=== PATIENT | female | born 1980 | race Caucasian/White ===

== ENCOUNTER 2022-06-27 02:18 | Inpatient (IN) ==
[2022-06-27] MEDS ORDERED: LORazepam 2 MG/1 ML VIAL IV STA ×2 (02:57→11:07)
[2022-06-27 03:16] LABS: Basophils # (auto) 0.05 K/uL (0-0.2); Basophils % (auto) 0.5 %; Eosinophils # (auto) 0.04 K/uL (0-0.50); Eosinophils % (auto) 0.4 %; Hematocrit (blood only) 37.8 % (37.0-47.0); Hemoglobin 13.1 g/dl (12.0-16.0); Immature Granulocytes # (auto) 0.04 K/uL (0.01-0.20); Immature Granulocytes % (auto) 0.4 %; Lymphocytes # (auto) 1.45 K/uL (1.2-3.4); Lymphocytes % (auto) 14.8 %; Mean Corpuscular Hemoglobin 30.8 pg (25.0-34.0); Mean Corpuscular Hgb Conc 34.7 g/dL (32.0-36.0); Mean Corpuscular Volume 88.9 fL (80.0-100.0); Mean Platelet Volume 11.1 fL (9.4-12.4); Monocytes # (auto) 0.28 K/uL (0.11-0.59); Monocytes % (auto) 2.9 %; Neutrophils # (auto) 7.91 K/uL (1.40-6.50); Platelet Count 248 K/uL (130-400); RDW Standard Deviation 41.7 fL (36.4-46.3); Red Blood Count 4.25 M/uL (4.20-5.40); White Blood Count 9.77 K/ul (4.8-10.8)
[2022-06-27 03:48] LABS: Albumin Globulin Ratio 1.4 (0.9-2); Bilirubin,Total 0.4 mg/dl (0.2-1.0); Calcium 8.7 mg/dl (8.6-10.3); Creatinine Clr Calc Pharmacy 135.1 ml/min; Est GFR (African American) 128.5 ml/min; Est GFR (Non-African American) 110.9 ml/min; Globulin 2.9 gm/dl (2.5-4.0); Potassium 4.6 mmol/L (3.5-5.1); Total Protein 6.9 gm/dl (6.0-8.3); Troponin I High Sensitivity 132.6 pg/ml (0-14)
[2022-06-27] MEDS ORDERED: fentaNYL citrate PF 100 MCG/2 ML VIAL IV STA (03:57)
[2022-06-27] MEDS ORDERED: ONDANSETRON INJ 2 MG/ML 2 ML VIAL IV STA (03:57)
[2022-06-27] MEDS ORDERED: Heparin IV Adult Wt-Based Standard WITH Bolus Protocol IV STA (04:16)
[2022-06-27] MEDS ORDERED: NITROGLYCERIN SL 0.4 MG/TAB TAB SL STA (04:16)
--- NOTE | 2022-06-27 04:18 | Emergency Department Note ---
Impression & Plan NSTEMI (non-ST elevated myocardial infarction) Admit to the [facility] service ED Provider Note NAME: DADA PARRISH AGE: 42 SEX: F ARRIVES VIA: Ambulance INFORMANT: Patient and EMS ED PROVIDER(S): Rosalia Vazquez DO CHIEF COMPLAINT: Chest pain PLAN: Disposition: Admit to the [facility] Condition: Guarded MEDICAL DECISION MAKING: This is a 42-year-old female patient who presents to the emergency department with chest pain and right arm discomfort for the past 2 days. The patient has different types of chest discomfort. 1 associated with anxiety and another one that seems to radiate into her right arm. EMS was called and they administered aspirin and nitroglycerin. She has a normal-appearing EKG and her troponin was significantly elevated. Her presentation is consistent with an NSTEMI. I have discussed the case with the [facility] Hospitalist and they will evaluate for further inpatient care. Patient has a known history of heart disease with a previous stent placed in [place], [place] in 2020. She continues to smoke 1 pack of cigarettes per day and has uncontrolled diabetes. Triage Nursing notes reviewed and agree with them. Additional history obtained from her is at the bedside We requested external medical records from [facility]. Their medical records department is not open at this hour over the weekend. Vital Signs: reviewed and unremarkable Differential diagnosis: Anxiety, aortic dissection, STEMI, NSTEMI, GERD ER treatment provided: Cardiac monitoring Twelve-lead EKG Heparin bolus Heparin drip Ativan IV IV fentanyl Diagnostics interpreted by me: ECG: Normal sinus rhythm at a rate of [address] segment elevation or signs of ischemia. There is no ectopy. QTc 462 ms Cardiac Monitoring: Normal sinus rhythm at 88 Laboratory studies: See below Imaging studies: As per my independent interpretation Portable chest x-ray: No significant cardiomegaly or pulmonary infiltrate s/opacities. HPI: 42/F arrives for evaluation of chest pain. Patient describes having intermittent chest discomfort over the past 2 days that radiates down her right arm. She does describe having a longstanding history of anxiety. She cannot tell whether the chest discomfort was from her anxiety or something else. The pain seemed to be getting worse tonight and her family was concerned. Patient developed worsening shortness of breath and nausea and vomiting. PAST MEDICAL HISTORY:Coronary artery disease; anxiety; yjl-[id number]-[id number] diabetes PAST SURGICAL HISTORY:See Below FAMILY HISTORY:See Below SOCIAL HISTORY:Lives with her family; smokes a pack of cigarettes per day HOME MEDICATIONS:See list ALLERGIES:See list VITALS:See Below PHYSICAL EXAMINATION: HEENT: Head - normocephalic and atraumatic. Pupils are equal, round, and reactive to light. Extraocular eye muscles are intact, and sclera are anicteric. Nose - moist nasal mucosa without discharge. Mouth - moist buccal mucosa. Oropharynx is nonerythematous and there is no tonsillar exudate or edema noted. Poor dentition Neck: Supple; no cervical lymphadenopathy or JVD Heart: Regular rate and rhythm. There is a normal S1 and S2 with no murmurs, clicks, or gallops appreciated. Lungs: Clear to auscultation bilaterally with no wheezes, rales, or rhonchi. Abdomen: Soft, completely nontender, nondistended, with good bowel sounds. There are no palpable pulsatile masses or hepatosplenomegaly. There is no guarding, rigidity, or rebound noted. Extremities: No evidence of cyanosis, clubbing, or edema. There are easily palpable peripheral pulses. Skin: warm and dry with good turgor and no rashes. ED COURSE:225 Times/Reassessments: 225 patient was evaluated in room A-10. A complete history and physical was performed. Pleural space for continuous cardiac monitoring. The patient was in a normal sinus rhythm at a rate of 88. A twelve-lead EKG was obtained as described above. Patient was extremely anxious on physical exam. She was given 2 mg of IV Ativan. This did seem to help with her symptoms. Portable chest x-ray was performed. Her chest discomfort continued she was given a dose of IV fentanyl and IV Zofran. She was also given sublingual nitro glycerin. I reviewed the results of the laboratory studies and x-ray with the patient. She was given a heparin bolus and started on heparin drip. I discussed the case with the [facility] Hospitalist and they will evaluate for further management. I have personally spent greater than 40 minutes of critical care time in the direct management of this patient. This includes bedside care, interpretation of diagnostic studies, and testing, discussion with consultants, patient, and family members, and other required patient management activities. This 40 minutes is in excess of all separately billable procedures. Rosaliaharry Vazquez DO Past Med/Surg History Social History Smoking Status: Current every day smoker Hx Alcohol Use: No Hx Substance Use: No Preferred Language: [place] Communication Ability: Effective Director Of Player Personnel Required: No Beliefs That Will Affect Care: None Current Living Situation: Significant Other Other Information That Helps Us Care for You: No Feels Safe at Home: Yes Safety Concerns: Feels Safe At This Time Assistive Devices: None Allergies Allergies Allergy/AdvReac Type Severity Reaction Status Date / Time azithromycin Allergy Unknown Verified 06/27/22 05:01 Iodinated Contrast Media Allergy Hives Verified 06/27/22 04:59 sulfamethoxazole Allergy Gastrointestinal Verified 06/27/22 05:00 [From Bactrim] Upset trimethoprim [From Bactrim] Allergy Gastrointestinal Verified 06/27/22 05:00 Upset Home Meds Home Medications Medication Instructions Recorded Confirmed atorvastatin 80 mg tablet 80 mg PO HS 06/27/22 06/27/22 bupropion HCl 300 mg 24 hr tablet, 300 mg PO QAM 06/27/22 06/27/22 extended release clopidogrel 75 mg tablet (Plavix) 75 mg PO DAILY 06/27/22 06/27/22 glimepiride 2 mg tablet 2 mg PO BID 06/27/22 06/27/22 hydroxyzine pamoate 50 mg capsule 50 mg PO DAILY PRN Anxiety 06/27/22 06/27/22 lamotrigine 25 mg tablet See Rx Instructions .Route .COMPLEX 06/27/22 06/27/22 metoprolol succinate 25 mg 12.5 mg PO DAILY 06/27/22 06/27/22 tablet,extended release 24 hr paroxetine HCl 30 mg tablet 30 mg PO DAILY 06/27/22 06/27/22 Results & Data (ED) Vital Signs Vital Signs - 24 hr 06/27/22 02:34 06/27/22 02:08 06/27/22 02:32 Temperature 36.3 C L 36.3 C L Temperature Source Oral Oral Pulse Rate 83 80 Pulse Rate [Apical] 83 Pulse Rate from SpO2 Sensor Respiratory Rate 25 H 16 Respiratory Effort / Characteristics Non-Labored Non-Labored Respiratory Depth Normal Normal Respiratory Pattern Regular Regular Blood Pressure 115/73 Blood Pressure [Right Arm] 115/73 Blood Pressure Mean 87 Blood Pressure Mean [Right Arm] 87 Pulse Oximetry 99 99 Oxygen Delivery Method Room Air Room Air Sepsis Recent Fever Within 48 Hours No Sepsis New/Unexplained Change in Mental Status No Sepsis Action Taken by Nursing No Action Required 06/27/22 02:32 06/27/22 02:45 06/27/22 02:57 Temperature Temperature Source Pulse Rate 82 85 Pulse Rate [Apical] Pulse Rate from SpO2 Sensor Respiratory Rate 31 H 27 H Respiratory Effort / Characteristics Respiratory Depth Respiratory Pattern Blood Pressure Blood Pressure [Right Arm] Blood Pressure Mean Blood Pressure Mean [Right Arm] Pulse Oximetry 98 100 99 Oxygen Delivery Method Room Air Room Air Room Air Sepsis Recent Fever Within 48 Hours Sepsis New/Unexplained Change in Mental Status Sepsis Action Taken by Nursing 06/27/22 03:17 06/27/22 03:00 06/27/22 03:15 Temperature Temperature Source Pulse Rate 80 76 Pulse Rate [Apical] Pulse Rate from SpO2 Sensor 79 Respiratory Rate 25 H Respiratory Effort / Characteristics Respiratory Depth Respiratory Pattern Blood Pressure Blood Pressure [Right Arm] Blood Pressure Mean Blood Pressure Mean [Right Arm] Pulse Oximetry 100 98 Oxygen Delivery Method Room Air Room Air Sepsis Recent Fever Within 48 Hours Sepsis New/Unexplained Change in Mental Status Sepsis Action Taken by Nursing 06/27/22 03:18 06/27/22 03:30 06/27/22 03:45 Temperature Temperature Source Pulse Rate 91 H 90 83 Pulse Rate [Apical] Pulse Rate from SpO2 Sensor Respiratory Rate 16 14 27 H Respiratory Effort / Characteristics Respiratory Depth Respiratory Pattern Blood Pressure 135/90 Blood Pressure [Right Arm] Blood Pressure Mean 105 Blood Pressure Mean [Right Arm] Pulse Oximetry 97 99 Oxygen Delivery Method Room Air Room Air Sepsis Recent Fever Within 48 Hours Sepsis New/Unexplained Change in Mental Status Sepsis Action Taken by Nursing 06/27/22 04:00 06/27/22 04:04 06/27/22 04:27 Temperature Temperature Source Pulse Rate 83 88 Pulse Rate [Apical] Pulse Rate from SpO2 Sensor 81 Respiratory Rate 21 30 H Respiratory Effort / Characteristics Respiratory Depth Respiratory Pattern Blood Pressure 122/89 120/65 Blood Pressure [Right Arm] Blood Pressure Mean 100 83 Blood Pressure Mean [Right Arm] Pulse Oximetry 98 96 96 Oxygen Delivery Method Room Air Room Air Room Air Sepsis Recent Fever Within 48 Hours Sepsis New/Unexplained Change in Mental Status Sepsis Action Taken by Nursing 06/27/22 04:30 06/27/22 04:33 06/27/22 05:10 Temperature Temperature Source Pulse Rate Pulse Rate [Apical] Pulse Rate from SpO2 Sensor 84 69 Respiratory Rate Respiratory Effort / Characteristics Respiratory Depth Respiratory Pattern Blood Pressure 109/64 116/70 Blood Pressure [Right Arm] Blood Pressure Mean 79 85 Blood Pressure Mean [Right Arm] Pulse Oximetry 97 95 97 Oxygen Delivery Method Room Air Room Air Room Air Sepsis Recent Fever Within 48 Hours Sepsis New/Unexplained Change in Mental Status Sepsis Action Taken by Nursing 06/27/22 05:15 06/27/22 05:30 06/27/22 05:31 Temperature Temperature Source Pulse Rate 73 81 80 Pulse Rate [Apical] Pulse Rate from SpO2 Sensor Respiratory Rate 24 13 17 Respiratory Effort / Characteristics Respiratory Depth Respiratory Pattern Blood Pressure 122/71 117/65 Blood Pressure [Right Arm] Blood Pressure Mean 88 82 Blood Pressure Mean [Right Arm] Pulse Oximetry 97 98 99 Oxygen Delivery Method Room Air Room Air Room Air Sepsis Recent Fever Within 48 Hours Sepsis New/Unexplained Change in Mental Status Sepsis Action Taken by Nursing 06/27/22 05:45 06/27/22 06:00 Temperature Temperature Source Pulse Rate 79 87 Pulse Rate [Apical] Pulse Rate from SpO2 Sensor Respiratory Rate 26 H 20 Respiratory Effort / Characteristics Respiratory Depth Respiratory Pattern Blood Pressure 118/60 114/64 Blood Pressure [Right Arm] Blood Pressure Mean 79 80 Blood Pressure Mean [Right Arm] Pulse Oximetry 97 94 Oxygen Delivery Method Room Air Room Air Sepsis Recent Fever Within 48 Hours Sepsis New/Unexplained Change in Mental Status Sepsis Action Taken by Nursing Laboratory Data 06/27/22 02:31 06/27/22 02:31 Lab Results 06/27/22 06/27/22 06/27/22 Range/Units 02:31 02:31 02:31 WBC 9.77 (4.8-10.8) K/ul RBC 4.25 (4.20-5.40) M/uL Hgb 13.1 (12.0-16.0) g/dl Hct 37.8 (37.0-47.0) % MCV 88.9 (80.0-100.0) fL MCH 30.8 (25.0-34.0) pg MCHC 34.7 (32.0-36.0) g/dL RDW Std Deviation 41.7 (36.4-46.3) fL RDW Coeff of Donald 13.0 (11.5-14.5) % Plt Count 248 (130-400) K/uL MPV 11.1 (9.4-12.4) fL Immature Gran % (Auto) 0.4 % Neut % (Auto) 81.0 % Lymph % (Auto) 14.8 % [place] % (Auto) 2.9 % Eos % (Auto) 0.4 % Baso % (Auto) 0.5 % Neut # (Auto) 7.91 H (1.40-6.50) K/uL Lymph # (Auto) 1.45 (1.2-3.4) K/uL [place] # (Auto) 0.28 (0.11-0.59) K/uL Eos # (Auto) 0.04 (0-0.50) K/uL Baso # (Auto) 0.05 (0-0.2) K/uL Immature Gran # (Auto) 0.04 (0.01-0.20) K/uL APTT (21.0-31.0) Seconds PTT Ratio Sodium 132 L (136-145) mmol/L Potassium 4.6 (3.5-5.1) mmol/L Chloride 105 (98-107) mmol/L Carbon Dioxide 20 L (21-32) mmol/L Anion Gap 7 (3-11) BUN 12 (6-23) mg/dl Creatinine 0.60 (0.6-1.2) mg/dl Est Cr Clr Drug Dosing 135.1 ml/min Est GFR ( Amer) 128.5 ml/min Est GFR (Non-Af Amer) 110.9 ml/min BUN/Creatinine Ratio 20.0 (10-20) Glucose 422 H* (70-99(Fasting)) mg/dl POC Glucose (70-99) mg/dl Estimat Average Glucose 229 mg/dl Hemoglobin A1c 9.6 H (4.5-5.6) % Calcium 8.7 (8.6-10.3) mg/dl Magnesium 1.7 (1.7-2.4) mg/dl Total Bilirubin 0.4 (0.2-1.0) mg/dl AST 11 L (13-39) U/L ALT 16 (7-52) U/L Alkaline Phosphatase 73 (34-104) U/L Troponin I High Sens 132.6 H* (0-14) pg/ml Total Protein 6.9 (6.0-8.3) gm/dl Albumin 4.0 (3.4-5.0) gm/dl Globulin 2.9 (2.5-4.0) gm/dl Albumin/Globulin Ratio 1.4 (0.9-2) Lipase 14 (11-82) U/L TSH (0.300-4.500) uIu/ml SARS-CoV-2, RNA, NAAT (NEGATIVE) 06/27/22 06/27/22 06/27/22 Range/Units 02:31 02:31 04:10 WBC (4.8-10.8) K/ul RBC (4.20-5.40) M/uL Hgb (12.0-16.0) g/dl Hct (37.0-47.0) % MCV (80.0-100.0) fL MCH (25.0-34.0) pg MCHC (32.0-36.0) g/dL RDW Std Deviation (36.4-46.3) fL RDW Coeff of Donald (11.5-14.5) % Plt Count (130-400) K/uL MPV (9.4-12.4) fL Immature Gran % (Auto) % Neut % (Auto) % Lymph % (Auto) % [place] % (Auto) % Eos % (Auto) % Baso % (Auto) % Neut # (Auto) (1.40-6.50) K/uL Lymph # (Auto) (1.2-3.4) K/uL [place] # (Auto) (0.11-0.59) K/uL Eos # (Auto) (0-0.50) K/uL Baso # (Auto) (0-0.2) K/uL Immature Gran # (Auto) (0.01-0.20) K/uL APTT 24.9 (21.0-31.0) Seconds PTT Ratio 0.9 Sodium (136-145) mmol/L Potassium (3.5-5.1) mmol/L Chloride (98-107) mmol/L Carbon Dioxide (21-32) mmol/L Anion Gap (3-11) BUN (6-23) mg/dl Creatinine (0.6-1.2) mg/dl Est Cr Clr Drug Dosing ml/min Est GFR ( Amer) ml/min Est GFR (Non-Af Amer) ml/min BUN/Creatinine Ratio (10-20) Glucose (70-99(Fasting)) mg/dl POC Glucose (70-99) mg/dl Estimat Average Glucose mg/dl Hemoglobin A1c (4.5-5.6) % Calcium (8.6-10.3) mg/dl Magnesium (1.7-2.4) mg/dl Total Bilirubin (0.2-1.0) mg/dl AST (13-39) U/L ALT (7-52) U/L Alkaline Phosphatase (34-104) U/L Troponin I High Sens (0-14) pg/ml Total Protein (6.0-8.3) gm/dl Albumin (3.4-5.0) gm/dl Globulin (2.5-4.0) gm/dl Albumin/Globulin Ratio (0.9-2) Lipase (11-82) U/L TSH 0.795 (0.300-4.500) uIu/ml SARS-CoV-2, RNA, NAAT NEGATIVE (NEGATIVE) 06/27/22 06/27/22 Range/Units 05:13 05:46 WBC (4.8-10.8) K/ul RBC (4.20-5.40) M/uL Hgb (12.0-16.0) g/dl Hct (37.0-47.0) % MCV (80.0-100.0) fL MCH (25.0-34.0) pg MCHC (32.0-36.0) g/dL RDW Std Deviation (36.4-46.3) fL RDW Coeff of Donald (11.5-14.5) % Plt Count (130-400) K/uL MPV (9.4-12.4) fL Immature Gran % (Auto) % Neut % (Auto) % Lymph % (Auto) % [place] % (Auto) % Eos % (Auto) % Baso % (Auto) % Neut # (Auto) (1.40-6.50) K/uL Lymph # (Auto) (1.2-3.4) K/uL [place] # (Auto) (0.11-0.59) K/uL Eos # (Auto) (0-0.50) K/uL Baso # (Auto) (0-0.2) K/uL Immature Gran # (Auto) (0.01-0.20) K/uL APTT (21.0-31.0) Seconds PTT Ratio Sodium (136-145) mmol/L Potassium (3.5-5.1) mmol/L Chloride (98-107) mmol/L Carbon Dioxide (21-32) mmol/L Anion Gap (3-11) BUN (6-23) mg/dl Creatinine (0.6-1.2) mg/dl Est Cr Clr Drug Dosing ml/min Est GFR ( Amer) ml/min Est GFR (Non-Af Amer) ml/min BUN/Creatinine Ratio (10-20) Glucose (70-99(Fasting)) mg/dl POC Glucose 429 H* 334 H* (70-99) mg/dl Estimat Average Glucose mg/dl Hemoglobin A1c (4.5-5.6) % Calcium (8.6-10.3) mg/dl Magnesium (1.7-2.4) mg/dl Total Bilirubin (0.2-1.0) mg/dl AST (13-39) U/L ALT (7-52) U/L Alkaline Phosphatase (34-104) U/L Troponin I High Sens (0-14) pg/ml Total Protein (6.0-8.3) gm/dl Albumin (3.4-5.0) gm/dl Globulin (2.5-4.0) gm/dl Albumin/Globulin Ratio (0.9-2) Lipase (11-82) U/L TSH (0.300-4.500) uIu/ml SARS-CoV-2, RNA, NAAT (NEGATIVE) Administered Medications Acetaminophen (Acetaminophen 325 Mg Tab) 650 mg PO Q4H PRN PRN Reason: Pain or Fever Stop: 07/27/22 07:34 Last Admin: 06/27/22 19:38 Dose: 650 mg Documented By: PAH Amoxicillin/Clavulanate Potassium (Amoxicillin/Clavulanate 875 Mg Tab) [facility] [place] Stop: 07/07/22 16:59 Last Admin: 06/27/22 18:23 Dose: 1 tab Documented By: GEORGE Atorvastatin Calcium (Atorvastatin 40 Mg Tab) 40 [facility] [place] Stop: 07/27/22 08:59 Last Admin: 06/27/22 09:45 Dose: Not Given Documented By: GEORGE Heparin Sodium/Dextrose (Heparin Sodium/Dextrose) 25,000 units in 500 mls @ 32 mls/hr IV .[id number] [facility]; Protocol Stop: 07/27/22 04:44 Last Titration: 06/27/22 22:58 Dose: 1,600 units/hr, 32 mls/hr Documented By: YELENA Co-signed By: CARLY Titration: 06/27/22 15:42 Dose: 1,450 units/hr, 29 mls/hr Documented By: GEORGE Co-signed By: ARV Titration: 06/27/22 10:28 Dose: 1,300 units/hr, 26 mls/hr Documented By: GEORGE Co-signed By: ARV Titration: 06/27/22 09:16 Dose: 0 units/hr, 0 mls/hr Documented By: GEORGE Co-signed By: MARKIE Titration: 06/27/22 07:08 Dose: 1,300 units/hr, 26 mls/hr Documented By: MARIA TERESA Co-signed By: SOLIS Titration: 06/27/22 05:57 Dose: 0 units/hr, 0 mls/hr Documented By: RIVKA Co-signed By: WILEY Admin: 06/27/22 05:16 Dose: 1,300 units/hr, 26 mls/hr Documented By: RIVKA Co-signed By: WILEY Promethazine HCl 12.5 mg/ (Sodium Chloride) 50.5 mls @ 202 mls/hr IV Q6H PRN PRN Reason: Nausea And Vomiting Stop: 07/27/22 04:39 Last Infusion: 06/27/22 09:17 Dose: 0 mls/hr Documented By: Admin: 06/27/22 08:13 Dose: 202 mls/hr Documented By: GEORGE Sodium Chloride (Nss 1000ml) 1,000 mls @ 75 mls/hr IV .[id number] ONE Stop: 06/28/22 10:35 Last Admin: 06/27/22 21:57 Dose: 75 mls/hr Documented By: YELENA Insulin Aspart (Insulin Aspart Per Unit Charge) 0 units SC Q4 TRUPTI Stop: 07/27/22 12:29 Last Admin: 06/27/22 21:55 Dose: 6 units Documented By: YELENA Co-signed By: CARLY Admin: 06/27/22 17:10 Dose: 16 units Documented By: GEORGE Co-signed By: MADELYN Admin: 06/27/22 12:34 Dose: 1 units Documented By: GEORGE Co-signed By: MADELYN Admin: 06/27/22 12:27 Dose: 6 units Documented By: GEORGE Co-signed By: MADELYN Lorazepam (Lorazepam 2 Mg/1 Ml Vial) 1 mg IV Q3H PRN PRN Reason: Anxiety/Agitation Stop: 07/27/22 16:48 Last Admin: 06/27/22 21:16 Dose: 1 mg Documented By: YELENA Metoprolol Tartrate (Metoprolol Tartrate 25 Mg Tab) 25 mg PO BID TRUPTI Stop: 07/27/22 20:59 Last Admin: 06/27/22 21:57 Dose: 25 mg Documented By: YELENA Morphine Sulfate (Morphine Sulfate 2 Mg/Ml Carp) 2 mg IV Q4H PRN PRN Reason: Pain Stop: 07/11/22 04:39 Last Admin: 06/27/22 08:55 Dose: 2 mg Documented By: Admin: 06/27/22 08:19 Dose: 2 mg Documented By: GEORGE Nicotine (Nicotine 21 Mg/24 Hr Tdsy) 21 mg TD QAM TRUPTI Stop: 07/27/22 19:00 Last Admin: 06/27/22 19:34 Dose: 21 mg Documented By: YELENA Nitroglycerin (Nitroglycerin Sl 0.4 Mg/Tab Tab) 0.4 mg SL UD PRN PRN Reason: Chest Pain Stop: 07/27/22 07:34 Last Admin: 06/27/22 07:45 Dose: 0.4 mg Documented By: GEORGE Nitroglycerin (Nitroglycerin 2% Ointment 30gm Tube) 1 inch EXT Q6H TRUPTI Stop: 07/27/22 18:05 Last Admin: 06/27/22 18:16 Dose: 1 inch Documented By: GEORGE Oxycodone HCl (Oxycodone Hcl Ir 5 Mg Tab (Immediate Release)) 5 - 10 mg PO QID PRN PRN Reason: Pain Stop: 07/11/22 04:39 Last Admin: 06/27/22 22:03 Dose: 10 mg Documented By: YELENA Discontinued Medications Clopidogrel Bisulfate (Clopidogrel Bisulfate 300 Mg Tab) 300 mg PO NOW STA Stop: 06/27/22 13:04 Last Admin: 06/27/22 14:25 Dose: 300 mg Documented By: GEORGE Diphenhydramine HCl (Diphenhydramine 50 Mg/Ml Vial) Confirm Administered Dose 50 mg .ROUTE .ST-MED ONE Stop: 06/27/22 09:37 Last Admin: 06/27/22 10:58 Dose: Not Given Documented By: GEORGE Famotidine (Famotidine 20mg/5ml Iv Push) Confirm Administered Dose 20 mg IV .ST-MED ONE Stop: 06/27/22 09:37 Last Admin: 06/27/22 10:58 Dose: Not Given Documented By: GEORGE Fentanyl Citrate (Fentanyl Citrate Pf 100 Mcg/2 Ml Vial) 50 mcg IV NOW STA Stop: 06/27/22 03:58 Last Admin: 06/27/22 04:07 Dose: 50 mcg Documented By: RIVKA Fentanyl Citrate (Fentanyl Citrate Pf 100 Mcg/2 Ml Vial) Confirm Administered Dose 100 mcg .ROUTE .[facility] ONE Stop: 06/27/22 09:18 Last Admin: 06/27/22 10:56 Dose: Not Given Documented By: GEORGE Heparin Sodium (Porcine) (Heparin Sod (Porcine) 1000 Unit/Ml) 1 units IV NOW ONE Stop: 06/27/22 04:32 Last Admin: 06/27/22 05:15 Dose: 6,000 units Documented By: RIVKA Co-signed By: WILEY Heparin Sodium (Porcine) (Heparin (Porcine) 1000 Unit/Ml 10 Ml (Sports Medicine Physician Use Only)) Confirm Administered Dose 10,000 units .ROUTE .[facility] ONE Stop: 06/27/22 09:18 Last Admin: 06/27/22 10:57 Dose: Not Given Documented By: GEORGE Heparin Sodium/Dextrose (Heparin Iv Adult Wt-Based Standard With Bolus Protocol) 1 each IV NOW STA; Protocol Stop: 06/27/22 04:17 Last Admin: 06/27/22 05:38 Dose: 1 each Documented By: RIVKA Heparin Sodium/Sodium Chloride (Heparin In Nss Infusion 1000 Unit/500 Ml (2 U/Ml) Bag) Confirm Administered Dose 3,000 units IV .ST-MED ONE Stop: 06/27/22 09:18 Last Admin: 06/27/22 10:58 Dose: Not Given Documented By: GEORGE Sodium Chloride (Nss 1000ml) 1,000 mls @ 100 mls/hr IV .Q10H STA Stop: 06/27/22 14:51 Last Infusion: 06/27/22 16:21 Dose: 0 mls/hr Documented By: Infusion: 06/27/22 10:28 Dose: 100 mls/hr Documented By: Infusion: 06/27/22 09:16 Dose: 0 mls/hr Documented By: Admin: 06/27/22 05:56 Dose: 100 mls/hr Documented By: RIVKA Acetaminophen ([facility]) 1,000 mg in 100 mls @ 400 mls/hr IV NOW STA Stop: 06/27/22 06:18 Last Admin: 06/27/22 09:44 Dose: Not Given Documented By: GEORGE Heparin Sodium (Porcine) 3,000 (units/ Syringe) 3 mls @ 10 mls/min IV NOW ONE Stop: 06/27/22 16:01 Last Admin: 06/27/22 16:30 Dose: 10 mls/min Documented By: GEORGE Co-signed By: MADELYN Insulin Aspart (Insulin Aspart Per Unit Charge) 0 units SC ACHS [facility] Stop: 07/27/22 11:29 Last Admin: 06/27/22 13:18 Dose: Not Given Documented By: GEORGE Insulin Aspart (Insulin Aspart Per Unit Charge) 0 units SC ONE STA Stop: 06/27/22 05:05 Last Admin: 06/27/22 05:56 Dose: 8 units Documented By: RIVKA Co-signed By: WILEY Insulin Glargine (Lantus Per Unit Charge) 25 units SQ NOW STA Stop: 06/27/22 04:38 Last Admin: 06/27/22 05:14 Dose: 25 units Documented By: RIVKA Co-signed By: WILEY Lorazepam (Lorazepam 2 Mg/1 Ml Vial) 2 mg IV NOW STA Stop: 06/27/22 02:58 Last Admin: 06/27/22 03:07 Dose: 2 mg Documented By: RIVKA Lorazepam (Lorazepam 0.5 Mg Tab) 0.5 mg PO TID PRN PRN Reason: Anxiety Stop: 07/27/22 04:39 Last Admin: 06/27/22 16:32 Dose: 0.5 mg Documented By: Admin: 06/27/22 07:54 Dose: 0.5 mg Documented By: GEORGE Lorazepam (Lorazepam 2 Mg/1 Ml Vial) 1 mg IV NOW STA Stop: 06/27/22 11:08 Last Admin: 06/27/22 11:21 Dose: 1 mg Documented By: GEORGE Lorazepam (Lorazepam 2 Mg/1 Ml Vial) 0.5 mg IV Q4H PRN PRN Reason: Anxiety/Agitation Stop: 07/27/22 11:16 Last Admin: 06/27/22 20:27 Dose: 0.5 mg Documented By: YELENA Methylprednisolone (Methylprednisolone 125 Mg/2 Ml Vial) Confirm Administered Dose 125 mg .ROUTE .STK-MED ONE Stop: 06/27/22 09:37 Last Admin: 06/27/22 10:58 Dose: Not Given Documented By: GEORGE Metoprolol Tartrate (Metoprolol Tartrate 50 Mg Tab) 12.5 mg PO NOW STA Stop: 06/27/22 06:06 Last Admin: 06/27/22 09:44 Dose: Not Given Documented By: GEORGE Metoprolol Tartrate (Metoprolol Tartrate 25 Mg Tab) 25 mg PO NOW STA Stop: 06/27/22 13:06 Last Admin: 06/27/22 14:25 Dose: 25 mg Documented By: GEORGE Metoprolol Tartrate (Metoprolol Tartrate 25 Mg Tab) 25 mg PO ONE ONE Stop: 06/27/22 18:21 Last Admin: 06/27/22 18:23 Dose: 25 mg Documented By: GEORGE Midazolam HCl (Midazolam Hcl 1 Mg/Ml 2ml Vial) Confirm Administered Dose 2 mg .ROUTE .STK-MED ONE Stop: 06/27/22 09:18 Last Admin: 06/27/22 10:58 Dose: Not Given Documented By: GEORGE Nicardipine HCl (Nicardipine Hcl Inj 2.5 Mg/Ml 10 Ml Amp) Confirm Administered Dose 25 mg .ROUTE .STK-MED ONE Stop: 06/27/22 09:18 Last Admin: 06/27/22 10:58 Dose: Not Given Documented By: GEORGE Nicotine (Nicotine 21 Mg/24 Hr Tdsy) 21 mg TD ONE STA Stop: 06/27/22 06:19 Last Admin: 06/27/22 09:45 Dose: Not Given Documented By: GEORGE Nicotine (Nicotine 21 Mg/24 Hr Tdsy) 21 mg TD QAM [facility] Stop: 07/27/22 16:44 Last Admin: 06/27/22 16:59 Dose: Not Given Documented By: GEORGE Nitroglycerin (Nitroglycerin Sl 0.4 Mg/Tab Tab) 0.4 mg SL NOW STA Stop: 06/27/22 04:17 Last Admin: 06/27/22 04:27 Dose: 0.4 mg Documented By: RIVKA Nitroglycerin (Nitroglycerin 2% Ointment 30gm Tube) 0.5 inch EXT Q6H [facility] [facility] Stop: 07/27/22 08:29 Last Admin: 06/27/22 14:29 Dose: 0.5 inch Documented By: Admin: 06/27/22 09:08 Dose: 0.5 inch Documented By: GEORGE Nitroglycerin/Dextrose (Nitroglycerin/D5w 100mcg/Ml 20ml Syr) Confirm Administered Dose 2,000 mcg .ROUTE .STK-MED ONE Stop: 06/27/22 09:18 Last Admin: 06/27/22 10:58 Dose: Not Given Documented By: GEORGE Ondansetron HCl (Ondansetron Inj 2 Mg/Ml 2 Ml Vial) 4 mg IV NOW STA Stop: 06/27/22 03:58 Last Admin: 06/27/22 04:07 Dose: 4 mg Documented By: RIVKA Discharge Plan Visit Data Chief Complaint: Chest Pain Stated Complaint: Chest Pain Radiating into Upper Arm/Jaw ED Provider: Rosalia Vazquez Discharge Problem: NSTEMI (non-ST elevated myocardial infarction) Patient Disposition: Admitted As Inpatient Discharge Instructions Interventions: ED Discharge Assessment Last Done: 06/27/22 06:36
[2022-06-27] MEDS ORDERED: HEPARIN SOD (PORCINE) 1000 UNIT/ML IV ONE ×3 (04:31→23:00)
[2022-06-27] MEDS ORDERED: LANTUS PER UNIT CHARGE SQ STA (04:37)
[2022-06-27] MEDS ORDERED: DEXTROSE 50% 50 ML SYRINGE IV PRN (04:37)
[2022-06-27] MEDS ORDERED: CARBOHYDRATES FOR HYPOGLYCEMIA PO PRN (04:37)
[2022-06-27] MEDS ORDERED: GLUCOSE 10 TAB/TUBE PO PRN (04:37)
[2022-06-27] MEDS ORDERED: GLUCAGON FOR INJ 1 MG VIAL SQ PRN (04:37)
[2022-06-27] MEDS ORDERED: GLUCOSE 40% GEL 15 GM TUBE PO PRN (04:37)
[2022-06-27] MEDS ORDERED: MoRPHine SULFATE 4 MG/ML 1 ML CARP\\VIAL IV PRN (04:40)
[2022-06-27] MEDS ORDERED: PROMETHAZINE HCL 12.5 MG in SODIUM CHLORIDE 0.9% 50 ML IV PRN (04:40)
[2022-06-27] MEDS ORDERED: SODIUM CHLORIDE 0.9% 1000ML 1,000 ML IV STA (04:52)
[2022-06-27 04:58] LABS: Magnesium 1.7 mg/dl (1.7-2.4)
[2022-06-27 04:59] LABS: Partial Thromboplastin Ratio 0.9; Partial Thromboplastin Time 24.9 Seconds (21.0-31.0)
[2022-06-27] MEDS ORDERED: INSULIN ASPART PER UNIT CHARGE SC STA (05:04)
[2022-06-27] MEDS: HEPARIN SODIUM/DEXTROSE 25,000 UNITS/500 ML BAG IV SCH (05:16)
--- NOTE | 2022-06-27 06:00 | History & Physical Report ---
Date of Service June 27, 2022 Assessment & Plan (1) NSTEMI (non-ST elevated myocardial infarction): Plan: History CAD status post stent Suspect some degree of medical noncompliance DM 2 on oral medications, patient markedly hyperglycemic upon arrival at the ER hx GERD anxiety/mood disorder, patient admits to anxiety for which her home Vistaril does not work ongoing tobacco abuse PCU Aspirin, IV heparin Initiate beta-jerri, statin Follow troponin TTE, Cardiology consult Re: NSTEMI N.p.o. until patient seen by Cardiology in anticipation of urgent diagnostic cardiac catheterization Retrieve records from [facility]. (ED press secretary has initiated request.) Check lipid profile Basal bolus insulin adjusted for n.p.o. status, ISS BG goal 1 10-1 40, check hemoglobin A1c Nicotine patch DVT prophylaxis. IV heparin Full code Patient fiance requesting updates from providers. Mr. Олег Molina, contact #[phone]. Text document was generated using [employer] voice recognition software. It may contain grammatical or spelling errors. Kindly contact undersigned for clarification of any documentation item in question. History of Present Illness Chief Complaint: Chest pain Primary Care Provider: None History obtained from patient, family, and records. Medical history significant for CAD status post stent, DM 2 on oral medications, GERD, anxiety/mood disorder, ongoing tobacco abuse. Patient recently relocated to [place] from [place], [place] with her family. Previous PCP from [facility] affiliated with the [facility]. Patient had a stent put in for CAD in [facility] around 2019. Intermittent chest pain occurring every other day despite stent placement. 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 Chest pain attributed to anxiety. Last night, patient had midsternal pain radiating to her right shoulder similar to heart attack in the past somewhat worse. Chest pain going to her neck and head. Accompanying shortness of breath and diaphoresis symptoms. Subsequent emesis without abdominal pain. Symptoms improved with aspirin and nitroglycerin administration prior to ER arrival. IV heparin initiated at the ER. Medical History as above Surgical History : Appendectomy, cholecystectomy, sections, tonsillectomy/adenectomy Family History : Heart disease Personal/Social history : 1 pack daily, no EtOH intake, homemaker Allergies Allergy/AdvReac Type Severity Reaction Status Date / Time azithromycin Allergy Unknown Verified 06/27/22 05:01 Iodinated Contrast Media Allergy Hives Verified 06/27/22 04:59 sulfamethoxazole Allergy Gastrointestinal Verified 06/27/22 05:00 [From Bactrim] Upset trimethoprim [From Bactrim] Allergy Gastrointestinal Verified 06/27/22 05:00 Upset Review of Systems Review of Systems: As per HPI, all other systems reviewed and negative Physical Exam Physical Exam: GENERAL: uncomfortable, anxious, obese, looks older than stated age, no respiratory distress SKIN: Normal color, warm HEENT: [place] palpebral conjunctivae, no ptosis, dry buccal mucosa NECK : Supple, no tenderness CHEST : CTA, no tenderness HEART : RRR, no obvious murmurs ABDOMEN: Some distention, nontender EXTREMITIES : No LE swelling/tenderness, no other conspicuous deformities noted NEUROLOGIC : Coherent, no facial asymmetry, no other gross focality Results & Data Results & Data Vital Signs (Past 12 Hours) Vital Signs Temp Pulse Pulse Resp BP BP Pulse Ox 06/27/22 05:31 80 17 117/65 99 06/27/22 05:30 81 13 98 06/27/22 05:15 73 24 122/71 97 06/27/22 05:10 116/70 97 06/27/22 04:33 95 06/27/22 04:30 109/64 97 06/27/22 04:27 120/65 96 06/27/22 04:04 88 30 H 122/89 96 06/27/22 04:00 83 21 98 06/27/22 03:45 83 27 H 99 06/27/22 03:30 90 14 06/27/22 03:18 91 H 16 135/90 97 06/27/22 03:15 76 25 H 98 06/27/22 03:00 100 06/27/22 03:17 80 06/27/22 02:57 99 06/27/22 02:45 85 27 H 100 06/27/22 02:32 82 31 H 98 06/27/22 02:32 80 06/27/22 02:08 36.3 C L 83 16 115/73 99 06/27/22 02:34 36.3 C L 83 25 H 115/73 99 O2 Del Method 06/27/22 05:31 Room Air 06/27/22 05:30 Room Air 06/27/22 05:15 Room Air 06/27/22 05:10 Room Air 06/27/22 04:33 Room Air 06/27/22 04:30 Room Air 06/27/22 04:27 Room Air 06/27/22 04:04 Room Air 06/27/22 04:00 Room Air 06/27/22 03:45 Room Air 06/27/22 03:30 06/27/22 03:18 Room Air 06/27/22 03:15 Room Air 06/27/22 03:00 Room Air 06/27/22 03:17 06/27/22 02:57 Room Air 06/27/22 02:45 Room Air 06/27/22 02:32 Room Air 06/27/22 02:32 06/27/22 02:08 Room Air 06/27/22 02:34 Room Air Laboratory Results Laboratory Results WBC 9.77 K/ul (4.8-10.8) 06/27/22 02:31 RBC 4.25 M/uL (4.20-5.40) 06/27/22 02:31 Hgb 13.1 g/dl (12.0-16.0) 06/27/22 02:31 Hct 37.8 % (37.0-47.0) 06/27/22 02:31 MCV 88.9 fL (80.0-100.0) 06/27/22 02:31 MCH 30.8 pg (25.0-34.0) 06/27/22 02:31 MCHC 34.7 g/dL (32.0-36.0) 06/27/22 02:31 RDW Std Deviation 41.7 fL (36.4-46.3) 06/27/22 02:31 RDW Coeff of Donald 13.0 % (11.5-14.5) 06/27/22 02:31 Plt Count 248 K/uL (130-400) 06/27/22 02:31 MPV 11.1 fL (9.4-12.4) 06/27/22 02:31 Immature Gran % (Auto) 0.4 % 06/27/22 02:31 Neut % (Auto) 81.0 % 06/27/22 02:31 Lymph % (Auto) 14.8 % 06/27/22 02:31 [place] % (Auto) 2.9 % 06/27/22 02:31 Eos % (Auto) 0.4 % 06/27/22 02:31 Baso % (Auto) 0.5 % 06/27/22 02:31 Neut # (Auto) 7.91 K/uL (1.40-6.50) H 06/27/22 02:31 Lymph # (Auto) 1.45 K/uL (1.2-3.4) 06/27/22 02:31 [place] # (Auto) 0.28 K/uL (0.11-0.59) 06/27/22 02:31 Eos # (Auto) 0.04 K/uL (0-0.50) 06/27/22 02:31 Baso # (Auto) 0.05 K/uL (0-0.2) 06/27/22 02:31 Immature Gran # (Auto) 0.04 K/uL (0.01-0.20) 06/27/22 02:31 APTT 24.9 Seconds (21.0-31.0) 06/27/22 02:31 PTT Ratio 0.9 06/27/22 02:31 Sodium 132 mmol/L (136-145) L 06/27/22 02:31 Potassium 4.6 mmol/L (3.5-5.1) 06/27/22 02:31 Chloride 105 mmol/L (98-107) 06/27/22 02:31 Carbon Dioxide 20 mmol/L (21-32) L 06/27/22 02:31 Anion Gap 7 (3-11) 06/27/22 02:31 BUN 12 mg/dl (6-23) 06/27/22 02:31 Creatinine 0.60 mg/dl (0.6-1.2) 06/27/22 02:31 Est Cr Clr Drug Dosing 135.1 ml/min 06/27/22 02:31 Est GFR ( Amer) 128.5 ml/min 06/27/22 02:31 Est GFR (Non-Af Amer) 110.9 ml/min 06/27/22 02:31 BUN/Creatinine Ratio 20.0 (10-20) 06/27/22 02:31 Glucose 422 mg/dl (70-99(Fasting)) H* 06/27/22 02:31 POC Glucose 334 mg/dl (70-99) H* 06/27/22 05:46 Calcium 8.7 mg/dl (8.6-10.3) 06/27/22 02:31 Magnesium 1.7 mg/dl (1.7-2.4) 06/27/22 02:31 Total Bilirubin 0.4 mg/dl (0.2-1.0) 06/27/22 02:31 AST 11 U/L (13-39) L 06/27/22 02:31 ALT 16 U/L (7-52) 06/27/22 02:31 Alkaline Phosphatase 73 U/L (34-104) 06/27/22 02:31 Troponin I High Sens 132.6 pg/ml (0-14) H* 06/27/22 02:31 Total Protein 6.9 gm/dl (6.0-8.3) 06/27/22 02:31 Albumin 4.0 gm/dl (3.4-5.0) 06/27/22 02:31 Globulin 2.9 gm/dl (2.5-4.0) 06/27/22 02:31 Albumin/Globulin Ratio 1.4 (0.9-2) 06/27/22 02:31 Lipase 14 U/L (11-82) 06/27/22 02:31 TSH 0.795 uIu/ml (0.300-4.500) 06/27/22 02:31 SARS-CoV-2, RNA, NAAT NEGATIVE (NEGATIVE) 06/27/22 04:10 Diagnostic Findings Chest x-ray as per my interpretation no infiltrate/no congestion EKG as per my interpretation : Rate 85, NSR, normal axis, no ischemia
[2022-06-27] MEDS ORDERED: ACETAMINOPHEN 1,000 MG/100 ML VIAL IV STA (06:04)
[2022-06-27] MEDS ORDERED: METOPROLOL TARTRATE 50 MG TAB PO STA (06:05)
[2022-06-27] MEDS ORDERED: NICOTINE 21 MG/24 HR TDSY TD STA (06:18)
--- NOTE | 2022-06-27 06:54 | CT Scan Report ---
CT OF THE HEAD WITHOUT CONTRAST CLINICAL HISTORY: Headache COMPARISON STUDY: No previous studies for comparison. CT DOSE: 614.27 mGy.cm TECHNIQUE: Helical axial images of the head were obtained without IV contrast. Automated exposure con trol was utilized for the study. A dose lowering technique was utilized adhering to the principles o f ALARA. FINDINGS: No acute intracranial hemorrhage, midline shift or mass effect is present. The ventricular system is unremarkable. The basal cisterns are patent. No extra-axial collections are present. There are no findings to suggest acute dural sinus thrombosis or acute territorial infarct. No significant calvarial abnormalities are present. Visualized portions of the sinuses and mastoid air cells are jeet ar. IMPRESSION: No acute intracranial findings. ACT 112: Negative or not required by law. Electronically signed by: Simon Castano M.D. 06/27/2022 6:52 AM
--- NOTE | 2022-06-27 07:15 | XRay Report ---
XR chest 1V portable CLINICAL HISTORY: Chest pain, nonspecific COMPARISON STUDY: No previous studies for comparison. FINDINGS: Lung volumes are normal. Lungs are clear. There is no pneumothorax or pleural effusion. Car diac size is normal. Mediastinal contours are normal. There is no evidence for pulmonary edema. IMPRESSION: No acute cardiopulmonary findings. ACT 112: Negative or not required by law. Electronically signed by: Simon Castano M.D. 06/27/2022 7:14 AM
[2022-06-27] MEDS ORDERED: NITROGLYCERIN SL 0.4 MG/TAB TAB SL PRN (07:35)
[2022-06-27] MEDS ORDERED: ACETAMINOPHEN 325 MG TAB PO PRN (07:35)
[2022-06-27 07:43] LABS: Estimated Average Glucose 229 mg/dl; Hemoglobin A1C 9.6 % (4.5-5.6)
[2022-06-27] MEDS: LORazepam 0.5 MG TAB PO PRN ×2 (07:54→16:32)
[2022-06-27] MEDS: MoRPHine SULFATE 2 MG/ML CARP IV PRN ×2 (08:19→08:55)
[2022-06-27 08:36] LABS: Chol HDL Ratio 5.6 (0-5)
[2022-06-27 08:45] LABS: Troponin I High Sensitivity 589.8 pg/ml (0-14)
[2022-06-27] MEDS: NITROGLYCERIN 2% OINTMENT 30GM TUBE EXT SCH ×3 (09:08→18:16)
[2022-06-27] MEDS ORDERED: fentaNYL citrate PF 100 MCG/2 ML VIAL ONE (09:17)
[2022-06-27] MEDS ORDERED: HEPARIN (PORCINE) 1000 UNIT/ML 10 ML (CATH LAB USE ONLY) ONE (09:17)
[2022-06-27] MEDS ORDERED: niCARdipine HCL INJ 2.5 MG/ML 10 ML AMP ONE (09:17)
[2022-06-27] MEDS ORDERED: NITROGLYCERIN/D5W 100MCG/ML 20ML SYR ONE (09:17)
[2022-06-27] MEDS ORDERED: MIDAZOLAM HCL 1 MG/ML 2ML VIAL ONE (09:17)
[2022-06-27] MEDS ORDERED: diphenhydrAMINE 50 MG/ML VIAL ONE (09:36)
[2022-06-27] MEDS ORDERED: FAMOTIDINE 20MG/5ML IV PUSH IV ONE (09:36)
[2022-06-27] MEDS ORDERED: methylPREDNISolone 125 MG/2 ML VIAL ONE (09:36)
[2022-06-27] MEDS: ATORVASTATIN 40 MG TAB PO SCH (09:45)
--- NOTE | 2022-06-27 10:11 | Pre Anesthesia Assessment ---
Date of Service June 27, 2022 Pre Sedation Assessment Vital Signs Temp Pulse Pulse Resp BP BP Pulse Ox 06/27/22 08:33 06/27/22 08:33 86 06/27/22 08:33 06/27/22 08:33 36.6 C 86 24 125/77 98 06/27/22 07:35 36.6 C 86 24 125/77 98 06/27/22 06:30 80 12 96 06/27/22 06:15 82 20 121/70 06/27/22 06:15 84 06/27/22 06:00 87 20 114/64 94 06/27/22 05:45 79 26 H 118/60 97 06/27/22 05:31 80 17 117/65 99 06/27/22 05:30 81 13 98 06/27/22 05:15 73 24 122/71 97 06/27/22 05:10 116/70 97 06/27/22 04:33 95 06/27/22 04:30 109/64 97 06/27/22 04:27 120/65 96 06/27/22 04:04 88 30 H 122/89 96 06/27/22 04:00 83 21 98 06/27/22 03:45 83 27 H 99 06/27/22 03:30 90 14 06/27/22 03:18 91 H 16 135/90 97 06/27/22 03:15 76 25 H 98 06/27/22 03:00 100 06/27/22 03:17 80 06/27/22 02:57 99 06/27/22 02:45 85 27 H 100 06/27/22 02:32 82 31 H 98 06/27/22 02:32 80 06/27/22 02:08 36.3 C L 83 16 115/73 99 06/27/22 02:34 36.3 C L 83 25 H 115/73 99 O2 Del Method 06/27/22 08:33 Room Air 06/27/22 08:33 06/27/22 08:33 Room Air 06/27/22 08:33 Room Air 06/27/22 07:35 Room Air 06/27/22 06:30 Room Air 06/27/22 06:15 06/27/22 06:15 06/27/22 06:00 Room Air 06/27/22 05:45 Room Air 06/27/22 05:31 Room Air 06/27/22 05:30 Room Air 06/27/22 05:15 Room Air 06/27/22 05:10 Room Air 06/27/22 04:33 Room Air 06/27/22 04:30 Room Air 06/27/22 04:27 Room Air 06/27/22 04:04 Room Air 06/27/22 04:00 Room Air 06/27/22 03:45 Room Air 06/27/22 03:30 06/27/22 03:18 Room Air 06/27/22 03:15 Room Air 06/27/22 03:00 Room Air 06/27/22 03:17 06/27/22 02:57 Room Air 06/27/22 02:45 Room Air 06/27/22 02:32 Room Air 06/27/22 02:32 06/27/22 02:08 Room Air 06/27/22 02:34 Room Air Cardiovascular RRR, no murmur, no edema Respiratory normal respiratory effort, lungs clear to auscultation Pre-Sedation Airway Assessment Smoking Status: Current every day smoker Notes The planned sedation has been discussed with the patient. Informed Consent was obtained. I have identified the patient, determined the appropriateness of sedation and have assessed the patient immediately prior to the procedure. All medicine(s) and interventions are by my order.
--- NOTE | 2022-06-27 10:14 | Post Anesthesia Assessment ---
Date of Service June 27, 2022 Post Sedation Assessment Vital Signs Temp Pulse Pulse Resp BP BP Pulse Ox 06/27/22 08:33 06/27/22 08:33 86 06/27/22 08:33 06/27/22 08:33 36.6 C 86 24 125/77 98 06/27/22 07:35 36.6 C 86 24 125/77 98 06/27/22 06:30 80 12 96 06/27/22 06:15 82 20 121/70 06/27/22 06:15 84 06/27/22 06:00 87 20 114/64 94 06/27/22 05:45 79 26 H 118/60 97 06/27/22 05:31 80 17 117/65 99 06/27/22 05:30 81 13 98 06/27/22 05:15 73 24 122/71 97 06/27/22 05:10 116/70 97 06/27/22 04:33 95 06/27/22 04:30 109/64 97 06/27/22 04:27 120/65 96 06/27/22 04:04 88 30 H 122/89 96 06/27/22 04:00 83 21 98 06/27/22 03:45 83 27 H 99 06/27/22 03:30 90 14 06/27/22 03:18 91 H 16 135/90 97 06/27/22 03:15 76 25 H 98 06/27/22 03:00 100 06/27/22 03:17 80 06/27/22 02:57 99 06/27/22 02:45 85 27 H 100 06/27/22 02:32 82 31 H 98 06/27/22 02:32 80 06/27/22 02:08 36.3 C L 83 16 115/73 99 06/27/22 02:34 36.3 C L 83 25 H 115/73 99 O2 Del Method 06/27/22 08:33 Room Air 06/27/22 08:33 06/27/22 08:33 Room Air 06/27/22 08:33 Room Air 06/27/22 07:35 Room Air 06/27/22 06:30 Room Air 06/27/22 06:15 06/27/22 06:15 06/27/22 06:00 Room Air 06/27/22 05:45 Room Air 06/27/22 05:31 Room Air 06/27/22 05:30 Room Air 06/27/22 05:15 Room Air 06/27/22 05:10 Room Air 06/27/22 04:33 Room Air 06/27/22 04:30 Room Air 06/27/22 04:27 Room Air 06/27/22 04:04 Room Air 06/27/22 04:00 Room Air 06/27/22 03:45 Room Air 06/27/22 03:30 06/27/22 03:18 Room Air 06/27/22 03:15 Room Air 06/27/22 03:00 Room Air 06/27/22 03:17 06/27/22 02:57 Room Air 06/27/22 02:45 Room Air 06/27/22 02:32 Room Air 06/27/22 02:32 06/27/22 02:08 Room Air 06/27/22 02:34 Room Air Recovery Score Activity: Moves 4 extremities Respiration: Deep Breath/Cough Circulation: +/-20% PreAnes Value Consciousness: Fully Awake Oxygen Saturation: > 92% On Room Air Discharge Sedation Level of Care: Fast Track Phase II Post Sedation Plan On clinical assessment, the patient appears to have tolerated the sedation without complications. Patient is recovering as anticipated. Patient will continue to be monitored by nursing and may be discharged when sedation discharge criteria are met per below protocol. Upon Completions of procedure up to 15 minutes continue every 5 minute vital signs and the P.A.R. score; then discharge to a Phase I or Fast Track to Phase II per the following guidelines: * Discharge Patient to appropriate Phase II area if PAR is 8 or greater or return to pre- procedure baseline. The post - procedure orders will be as directed. * If PAR score is less than 8 or not return to pre-procedure baseline then patient will follow Phase I monitoring till PAR is reached for Phase II. The Phase I may be done in procedure room or may call to secure a Phase I area. * If naloxone or flumazenil are used for reversal, hold in Phase I for continued monitoring from when last reversal dose was given for a minimum of 60 minutes or longer pending the nurse and/or physician discretion of patient condition before discharge to Phase II. Please call the Sedation Physician to re-evaluate and complete post-note for discharge to Phase II area. Do NOT discharge from procedure sedation or Phase 1 until post- sedation evaluation note is complete by procedure /sedation MD Sedation Discharge Instructions to be given to the patient at discharge to home. [facility] – [place] Procedure Codes (Charges) Indication for Procedure Indication for procedure: NSTEMI Sedation/Anesthesia Procedure 1: Sedation/Anesthesia: 40401 Mod Sedation by the same physician;Init15 Min Child Age 5 & Up (initial 15 min) Total Sedation Time (minutes): 23 Procedure 2: Sedation/Anesthesia: 91106 Mod Sedation by the same physician; Ea [id number] Minutes (additional 8 min) Total Sedation Time (minutes): 23
--- NOTE | 2022-06-27 10:35 | Electrocardiogram Report ---
Test Reason : Blood Pressure : / mmHG Vent. Rate : 087 BPM Atrial Rate : 087 BPM P-R Int : 136 ms QRS Dur : 078 ms QT Int : 384 ms P-R-T Axes : 036 038 050 degrees QTc Int : 462 ms Normal sinus rhythm Normal ECG No previous ECGs available Confirmed by Tramaine Sandoval ([id number]) on 06/27/2022 10:35:33 AM Referred By: REFERRED SELF Confirmed By:Tramaine Sandoval
--- NOTE | 2022-06-27 10:41 | Electrocardiogram Report ---
Test Reason : Blood Pressure : / mmHG Vent. Rate : 075 BPM Atrial Rate : 075 BPM P-R Int : 148 ms QRS Dur : 080 ms QT Int : 416 ms P-R-T Axes : 057 043 060 degrees QTc Int : 464 ms Normal sinus rhythm Normal ECG When compared with ECG of 27-JUN-2022 07:45, (unconfirmed) No significant change was found Confirmed by Tramaine Sandoval ([id number]) on 06/27/2022 10:40:51 AM Referred By: REFERRED SELF Confirmed By:Tramaine Sandoval
[2022-06-27] MEDS ORDERED: LORazepam 2 MG/1 ML VIAL IV PRN ×2 (11:17→16:49)
[2022-06-27] MEDS ORDERED: INSULIN ASPART PER UNIT CHARGE SC SCH (11:30)
[2022-06-27] MEDS ORDERED: OLANZapine 10 MG/2.1 ML SDV IM PRN (12:12)
[2022-06-27] MEDS ORDERED: PHARMACY GLYCEMIC MGMT CONSULT PRN (12:15)
[2022-06-27] MEDS: INSULIN ASPART PER UNIT CHARGE SC SCH ×4 (12:27→21:55)
[2022-06-27 12:35] LABS: Amphetamines+Metham, Urine Neg (Neg); Barbiturates, Urine Neg (Neg); Benzodiazepine, Urine Pos (Neg); Cocaine, Urine Pos (Neg); MDMA (Ecstacy), Urine Neg (Neg); Methadone, Urine Neg (Neg); Opiate, Urine Pos (Neg); Phencyclidine, Urine Neg (Neg)
--- NOTE | 2022-06-27 12:46 | Cardiac Catheterization ---
[facility] Data: Station Mechanic Cardiac Status Clinical evaluation leading to the procedure CAD Presenation: Non STEMI Anginal Classification: CCS IV Heart Failure: No Cardiogenic Shock within 24 Hours: No Cardiac Arrest within 24 Hours: No Imaging Studies Past 6 Months: No STEMI OR Non-STEMI Symptom Onset Date: 06/26/22 Coronary Anatomy Dominant: Left Left Main (% Stenosis): Normal LAD (% Stenosis): Distal (70%) Circumflex (% Stenosis): Mid (40%) OM1 (% Stenosis): Proximal (Stent patent) and Mid (50%) L PL1 (% Stenosis): Normal L PDA (% Stenosis): Proximal (40%) RCA (% Stenosis): Normal (Diffuse mild) Diagnostic Physicians Name: Luis Kelly MD, PhD Closure Device Recommendations: Medical Therapy and/or Counseling Intraprocedure Events Significant Disection: No Perforation: No Cardiac Cath Procedure Full Procedure Date June 27, 2022 Pre-Procedure Diagnosis Pre-Procedure Diagnosis: Non STEMI AUC Score AUC Score: 07 Post-Procedure Diagnosis Post-Procedure Diagnosis: Severe CAD and Unsuccessful PCI Procedure(s) Performed Procedure(s) Performed: Coronary Angiography and PTCA [employer] Luis Kelly MD, PhD Estimated Blood Loss Estimated Blood Loss: 15 ml Medication(s) Medication(s): Diphenhydramine, Fentanyl, Heparin, Lidocaine 1%, Nicardipine, Nitroglycerin and Versed Summary of Findings Brief description: Patient was brought to the cardiac catheterization suite where she was shaved and prepped in a sterile fashion. Sedated using IV Versed and fentanyl. Soft tissues of the right wrist were anesthetized using 2 mils of 1% Xylocaine. The right radial artery was accessed with a modified Seldinger technique and a 6 [place] radial artery glide sheath was placed. All catheters were advanced and exchanged over a 0.035 J-tip wire. Patient was provided anticoagulation with IV heparin and antispasmodics including nitroglycerin and nicardipine. She was also premedicated with Benadryl, Pepcid, and Solu-Medrol for IVP contrast allergy. Left coronary angiography was performed in orthogonal views with a 5 [place] 4 diagnostic catheter. Right coronary angiography was performed in orthogonal views with a 5 [place] 4 diagnostic catheter. Diagnostic catheters were removed. We decided to investigate further and apparent occluded diagonal or septal branch. Therefore, the patient was given additional IV heparin and ACT was checked intermittently to maintain therapeutic anticoagulation. A 6 [place] EBU 3.0 guide catheter was used to engage the left main coronary. Through this, a BMW reversal guidewire was advanced and positioned across the lesion. It advanced relatively easily beyond the occluded portion. A 1.5 x 8 mm balloon was then positioned exactly across the occlusion such that half the balloon was prior to the occlusion and the other half was within the occluded portion. This was then inflated to 8 danny. The balloon was removed. Angiography was performed in orthogonal views. The patient had no further anginal chest pain. Given the size of the vessel no further attempted PCI was performed. The guidewire, balloon, were both removed. The guide catheter was removed after final angiography. Radial artery sheath was removed. Hemostasis was obtained using the TR band. Patient was hemodynamically stable and returned to the recovery area. This ended the case. Coronary angiography findings: LMT: Large caliber short vessel bifurcating into LAD and circumflex. No an giographically evident disease. LAD: Appears to be large caliber. Proximally there is mild disease. The mid segment also has diffuse mild disease and then the vessel tapers after several branches and has a focal 70% stenosis in a relatively small vessel. There is a large septal. 100% occluded. There is staining within the vessel suggestive of acute occlusion. LCx: This is large caliber and dominant. Proximal segment without disease. Gives a large caliber OM1 which has a stent which is previously placed and widely patent. There is also a mid vessel stenosis of up to 50%. The mid circumflex has mild luminal irregularities and gives a large caliber posterolateral branch. The distal vessel then provides a large caliber long PDA. There is a 40% at the beginning of this vessel. There is also a 40% stenosis just after the ostium of the posterior lateral branch. RCA: Medium caliber nondominant vessel with mild diffuse disease. PTCA of the septal (?) Branch. Minimal improvement with PTCA. Appears there are several small caliber septals arising from a septal trunk. No further PCI attempted given risk of rupture and small vessel. Summary: The acute lesion appears to be a possible large septal trunk. Unsuccessful PCI likely secondary to small caliber vessel. High risk for further attempts. There is also severe stenosis in the distal LAD which may be too small for PCI. It is not the culprit and was not addressed today. Patent prior stent Recommend guideline directed medical therapy for secondary prevention of coronary disease. Patient should remain on heparin drip for 48 hours. Hopefully this will allow dissolution of the apparent clot in the septal branch. Hemodynamics Rest Ao:: 145/92 mmHg Final Ao: 128/97 mmHg LV: Not performed Recommendations Recommendations: Medical Therapy and/or Counseling Radiation Exposure (mGy) 1988 mGy, fluoroscopy time 6.7 minutes Contrast (mls) 70 mL Anesthesia Start 9:43 AM, and 10:06 AM. Fentanyl and Versed Procedural Complication(s) None Disposition Recovery Room\PACU I attest to the content of the Intraoperative Record and any orders documented therein. Any exceptions are noted below. [facility] Card Cath Procedure Codes Cardiac Catheterization Procedure 1: Cardiovascular Cath Procedures: 34048 Coronaries Moderate Sedation Procedure 1: Sedation/Anesthesia: 82805 Mod Sedation by the same physician;Init15 Min Child Age 5 & Up (Initial 15 min, total 23 min) Procedure 2: Sedation/Anesthesia: 18242 Mod Sedation by the same physician; Ea [id number] Minutes (Additional 8 min (total 23 min)) Angioplasty Procedure 1: Cardiovascular Angioplasty Procedures: 09867 PTCA; Single mafor coronary artery or branch RC LC LD PG Care Time/CCT Total # of Minutes Spent Total Time Spent with Patient: Total time spent is greater than 50% in coordination of care (as documented) at patient's floor/unit and/or counseling patient:
--- NOTE | 2022-06-27 12:52 | Cardiology Consultation ---
Date of Consultation June 27, 2022 Assessment & Plan (1) NSTEMI (non-ST elevated myocardial infarction): (2) Hyperlipidemia: Plan 42-year-old female with known coronary disease with prior coronary intervention of the left circumflex obtuse marginal approximately 2019. Patient notes little change in symptom pattern following stent implantation but presented currently with increasing chest pain and discomfort. Troponins were elevated though normal EKG serially Cardiac catheterization with possible occluded septal branch. Patent stent in the left circumflex obtuse marginal, mid vessel left anterior descending stenosis Patient currently very anxious and agitated Recommendations: Continue beta-jerri increasing to 25 mg twice per day of metoprolol. Would continue IV heparin and keep n.p.o. after midnight depending on EKGs and serial enzymes am may warrant further intervention Continue aspirin, loaded with Plavix Treat lipids with high intensity statin Address underlying anxiety disorder as this likely is driving myocardial ischemia History of Present Illness Reason for Consultation: Non-ST segment elevation myocardial infarction Requesting Physician: MD Nia Attending Physician: Nikolay Kramer MD History of Present Illness Patient is a 42-year-old female with information gained from review of chart and records. Patient poor historian and currently agitated Her history is notable for 1. Atherosclerotic coronary disease status post prior stent circumflex obtuse marginal (left dominant anatomy) 2. Type 2 diabetes mellitus 3. Chronic anxiety disorder 4. Hyperlipidemia Patient presented with symptoms of pain and discomfort but notes chest pain is been nearly continuous since prior coronary stent nearly 3 years past. Yesterday however symptoms became more pronounced and patient sought ER evaluation. Serial EKGs normal however troponins elevated and trending upward and patient was taken to the diagnostic cardiac catheterization lab today. Cardiac catheterization demonstrated an occluded septal branch as well as mid to distal LAD stenosis. Patient examined post cath still complaining of pain as well as marked agitation and claustrophobia Reluctant historian with additional information not truly gained No fevers chills unexplained infections no bleeding difficulty Patient uncertain of medications and compliance Recently moved to [facility] from [facility] Allergies Allergy/AdvReac Type Severity Reaction Status Date / Time azithromycin Allergy Unknown Verified 06/27/22 05:01 Iodinated Contrast Media Allergy Hives Verified 06/27/22 04:59 sulfamethoxazole Allergy Gastrointestinal Verified 06/27/22 05:00 [From Bactrim] Upset trimethoprim [From Bactrim] Allergy Gastrointestinal Verified 06/27/22 05:00 Upset Patient History Social History Smoking Status: Current every day smoker Hx Alcohol Use: No Hx Substance Use: No Preferred Language: Indian Communication Ability: Effective Youth Care Specialist Required: No Beliefs That Will Affect Care: None Current Living Situation: Significant Other Other Information That Helps Us Care for You: No Feels Safe at Home: Yes Safety Concerns: Feels Safe At This Time Assistive Devices: None Review of Systems Review of Systems: All systems reviewed & are unremarkable except as noted in HPI & below Physical Exam Constitutional: WD/WN, vitals as above Anxious and agitated Eyes: PERRL, conjunctivae normal, anicteric sclerae ENMT: external ear and nose normal, oropharynx normal Neck: trachea midline, no thyromegaly Respiratory: normal respiratory effort, lungs clear to auscultation Cardiovascular: Rate/Rhythm: regular rate and regular rhythm Heart Sounds: normal S1 and normal S2; no murmur Vessels: no JVD Extremities: no edema Gastrointestinal (Abdomen): normal bowel sounds, soft, nontender, no hepatosplenomegaly Musculoskeletal: no cyanosis or clubbing, extremities motor strength 5/5 Results & Data Vital Signs (Past 12 Hours) Vital Signs Temp Pulse Pulse Resp BP BP Pulse Ox 06/27/22 12:19 79 16 163/97 H 98 06/27/22 11:51 87 18 142/81 H 98 06/27/22 11:00 76 06/27/22 10:54 84 18 161/94 H 97 06/27/22 10:39 76 16 150/93 H 99 06/27/22 10:37 06/27/22 10:24 36.9 C 73 16 154/90 H 98 06/27/22 08:33 06/27/22 08:33 86 06/27/22 08:33 06/27/22 08:33 36.6 C 86 24 125/77 98 06/27/22 07:35 36.6 C 86 24 125/77 98 06/27/22 06:30 80 12 96 06/27/22 06:15 82 20 121/70 06/27/22 06:15 84 06/27/22 06:00 87 20 114/64 94 06/27/22 05:45 79 26 H 118/60 97 06/27/22 05:31 80 17 117/65 99 06/27/22 05:30 81 13 98 06/27/22 05:15 73 24 122/71 97 06/27/22 05:10 116/70 97 06/27/22 04:33 95 06/27/22 04:30 109/64 97 06/27/22 04:27 120/65 96 06/27/22 04:04 88 30 H 122/89 96 06/27/22 04:00 83 21 98 06/27/22 03:45 83 27 H 99 06/27/22 03:30 90 14 06/27/22 03:18 91 H 16 135/90 97 06/27/22 03:15 76 25 H 98 06/27/22 03:00 100 06/27/22 03:17 80 06/27/22 02:57 99 06/27/22 02:45 85 27 H 100 06/27/22 02:32 82 31 H 98 06/27/22 02:32 80 06/27/22 02:08 36.3 C L 83 16 115/73 99 06/27/22 02:34 36.3 C L 83 25 H 115/73 99 O2 Del Method O2 Flow Rate 06/27/22 12:19 Nasal Cannula 2 06/27/22 11:51 Nasal Cannula 2 06/27/22 11:00 06/27/22 10:54 Nasal Cannula 2 06/27/22 10:39 Nasal Cannula 2 06/27/22 10:37 Nasal Cannula 2 06/27/22 10:24 Nasal Cannula 2 06/27/22 08:33 Room Air 06/27/22 08:33 06/27/22 08:33 Room Air 06/27/22 08:33 Room Air 06/27/22 07:35 Room Air 06/27/22 06:30 Room Air 06/27/22 06:15 06/27/22 06:15 06/27/22 06:00 Room Air 06/27/22 05:45 Room Air 06/27/22 05:31 Room Air 06/27/22 05:30 Room Air 06/27/22 05:15 Room Air 06/27/22 05:10 Room Air 06/27/22 04:33 Room Air 06/27/22 04:30 Room Air 06/27/22 04:27 Room Air 06/27/22 04:04 Room Air 06/27/22 04:00 Room Air 06/27/22 03:45 Room Air 06/27/22 03:30 06/27/22 03:18 Room Air 06/27/22 03:15 Room Air 06/27/22 03:00 Room Air 06/27/22 03:17 06/27/22 02:57 Room Air 06/27/22 02:45 Room Air 06/27/22 02:32 Room Air 06/27/22 02:32 06/27/22 02:08 Room Air 06/27/22 02:34 Room Air
[2022-06-27] MEDS ORDERED: CLOPIDOGREL BISULFATE 300 MG TAB PO STA (13:03)
[2022-06-27] MEDS ORDERED: METOPROLOL TARTRATE 25 MG TAB PO STA (13:05)
--- NOTE | 2022-06-27 13:22 | Pharmacy Report ---
Pharmacy Glycemic Short Note 2 - Date of Service June 27, 2022 - Glycemic Short BSG Results (Last 24 hours): 06/27/22 06/27/22 06/27/22 02:31 05:13 05:46 Glucose 422 H* POC Glucose 429 H* 334 H* 06/27/22 06/27/22 06/27/22 06:44 08:11 12:05 Glucose POC Glucose 278 H 205 H 275 H OUTPATIENT ANTIDIABETIC REGIMEN: * Unknown * HbA1C = 9.6% (06/27/22) ASSESSMENT: * Ms Fernandez is a 42 y/o F with a PMH of T2DM on oral medications who presents with an NSTEMI. * Patient's BSG on admission @ 0400 was 429 mg/dL and patient received Lantus 25 units + Novolog 8 units for this. * BSG at noon was 279 mg/dL. * Since the Lantus dose this AM was almost full weight-based stress of 2 + patient is NPO, will not give additional Lantus today. Additional dosing tomorrow based upon response + diet status. * Will instead utilize tight CF to lower BSG to goal range. Will use weight- based stress of 3 CF with q4 checks to ensure adequate coverage. PLAN FOR INPATIENT GLYCEMIC CONTROL: * Hold outpatient oral diabetes medications * Basal insulin * Lantus 25 units SQ x 1 with additional dosing per reponse * Bolus insulin * NovoLog per scale ACHS or Q6hrs while NPO * Goal Range: Low 110 mg/dL - High 140 mg/dL * Correction Factor: 20 mg/dL/unit * Nutritional / Prandial insulin per carb ratio of 1 unit per 9 grams CHO consumed
[2022-06-27 14:54] LABS: Partial Thromboplastin Ratio 1.2; Partial Thromboplastin Time 34.7 Seconds (21.0-31.0)
[2022-06-27] MEDS ORDERED: HEPARIN IV BOLUS 3,000 UNITS in SYRINGE 0 ML IV ONE (16:00)
[2022-06-27] MEDS ORDERED: NICOTINE 21 MG/24 HR TDSY TD SCH (16:45)
--- NOTE | 2022-06-27 17:11 | Hospitalist Progress Note ---
Date of Service June 27, 2022 Assessment & Plan (1) NSTEMI (non-ST elevated myocardial infarction): Plan: History CAD status post stent placement in 2019 --Troponin increased from 132, now [address] elevation -- In light of patient's presentation, ongoing chest pain, heart alert called -- s/p cardiac cath: The acute lesion appears to be a possible large septal trunk. Unsuccessful PCI likely secondary to small caliber vessel. High risk for further attempts. There is also severe stenosis in the distal LAD which may be too small for PCI. It is not the culprit and was not addressed today. Patent prior stent Recommend guideline directed medical therapy for secondary prevention of coronary disease. Patient should remain on heparin drip for 48 hours. Hopefully this will allow dissolution of the apparent clot in the septal branch. -- Discussed with Dr. Sy Continue heparin drip, aspirin and metoprolol p.o. also started Positive urine drug screen --Patient admits to using marijuana -- Drug screen also positive for cocaine Benzos and opiates positive likely from morphine and Ativan received while admitted -- Patient exhibiting signs of agitation, occasional hallucinations, emotional lability Ativan IV as needed ordered -- Continue close monitoring Dental infection -- Patient reports having recent dental work on her left lower molar -- Reports she is still on a course of amoxicillin -- Augmentin 875 twice daily ordered DM 2 on oral medications, patient markedly hyperglycemic upon arrival at the ER --Improving --Glycemic pharmacist consulted hx GERD anxiety/mood disorder -- As needed Ativan ongoing tobacco abuse -- Nicotine patch DVT prophylaxis. IV heparin Full code plan of care discussed with patient and her significant other at the bedside in detail and at length all questions answered she is understanding, agreeable, comfortable with the plan of care Admission and Anticipated Discharge Date Admission Date: June 27, 2022 Subjective ff up for chest pain, etc seen with her significant other at the bedside Patient appears uncomfortable, had mostly down, somewhat upset States she does not feel good, states she is ready to leave, patient reassured Patient sitting up at the edge of the bed, states she still having 6-7 out of 10 chest pain despite receiving sublingual nitro and morphine earlier Still having nausea Heart alert called Discussed case with Dr. Kelly Patient taken for emergent cardiac cath Review of Systems Review of Systems: all noted and negative except for above Physical Exam Physical Exam: General- oriented x 3, not in distress, speaks in sentences with no effort or accessory muscle use Upset, somewhat tearful Head- atraumatic Eyes- PERRL, EOMI, anicteric ENT- oropharynx clear poor dentition Neck- supple, no JVD, no adenopathy, no thyromegaly; carotids +2/2, no bruits appreciated Lungs- clear to auscultation bilaterally, no rales/wheezes Heart- normal rate, regular rhythm; no murmur, no gallop, no rub appreciated Abdomen- normal bowel sounds, nondistended, soft, nontender, no masses or hepatosplenomegaly Extremities- no pretibial edema, no calf tenderness; peripheral pulses intact Neuro- alert, oriented x 3; CN 2-12 grossly intact; motor 5/5 bilaterally;sensation 100% on all extremities; no other gross focal neurologic deficits Skin- warm & dry Results & Data Results & Data Vital Signs (Past 12 Hours) Vital Signs Temp Pulse Pulse Resp BP BP Pulse Ox 06/27/22 15:38 36.8 C 96 H 18 122/76 95 06/27/22 15:13 83 06/27/22 14:24 78 18 128/79 98 06/27/22 13:17 76 16 138/84 98 06/27/22 12:19 79 16 163/97 H 98 06/27/22 11:51 87 18 142/81 H 98 06/27/22 11:00 76 06/27/22 10:54 84 18 161/94 H 97 06/27/22 10:39 76 16 150/93 H 99 06/27/22 10:37 06/27/22 10:24 36.9 C 73 16 154/90 H 98 06/27/22 08:33 06/27/22 08:33 86 06/27/22 08:33 06/27/22 08:33 36.6 C 86 24 125/77 98 06/27/22 07:35 36.6 C 86 24 125/77 98 06/27/22 06:30 80 12 96 06/27/22 06:15 82 20 121/70 06/27/22 06:15 84 06/27/22 06:00 87 20 114/64 94 06/27/22 05:45 79 26 H 118/60 97 06/27/22 05:31 80 17 117/65 99 06/27/22 05:30 81 13 98 06/27/22 05:15 73 24 122/71 97 06/27/22 05:10 116/70 97 O2 Del Method O2 Flow Rate 06/27/22 15:38 Room Air 06/27/22 15:13 06/27/22 14:24 Nasal Cannula 2 06/27/22 13:17 Nasal Cannula 2 06/27/22 12:19 Nasal Cannula 2 06/27/22 11:51 Nasal Cannula 2 06/27/22 11:00 06/27/22 10:54 Nasal Cannula 2 06/27/22 10:39 Nasal Cannula 2 06/27/22 10:37 Nasal Cannula 2 06/27/22 10:24 Nasal Cannula 2 06/27/22 08:33 Room Air 06/27/22 08:33 06/27/22 08:33 Room Air 06/27/22 08:33 Room Air 06/27/22 07:35 Room Air 06/27/22 06:30 Room Air 06/27/22 06:15 06/27/22 06:15 06/27/22 06:00 Room Air 06/27/22 05:45 Room Air 06/27/22 05:31 Room Air 06/27/22 05:30 Room Air 06/27/22 05:15 Room Air 06/27/22 05:10 Room Air all noted and reviewed including below
[2022-06-27] MEDS ORDERED: Nursing to Pharmacy Communication SCH (18:15)
[2022-06-27] MEDS ORDERED: METOPROLOL TARTRATE 25 MG TAB PO ONE (18:20)
[2022-06-27] MEDS: AMOXICILLIN/CLAVULANATE 875 MG TAB PO SCH (18:23)
[2022-06-27] MEDS: NICOTINE 21 MG/24 HR TDSY TD SCH (19:34)
[2022-06-27] MEDS ORDERED: NICOTINE POLACRILEX 2 MG GUM MT PRN (20:50)
[2022-06-27] MEDS ORDERED: METOPROLOL TARTRATE 25 MG TAB PO SCH ×2 (21:00)
[2022-06-27] MEDS: LORazepam 2 MG/1 ML VIAL IV PRN (21:16)
[2022-06-27] MEDS ORDERED: SODIUM CHLORIDE 0.9% 1000ML 1,000 ML IV ONE (21:16)
[2022-06-27] MEDS: METOPROLOL TARTRATE 25 MG TAB PO SCH (21:57)
[2022-06-27] MEDS: oxyCODONE HCL IR 5 MG TAB (IMMEDIATE RELEASE) PO PRN (22:03)
[2022-06-27 22:13] LABS: Partial Thromboplastin Ratio 1.2; Partial Thromboplastin Time 34.5 Seconds (21.0-31.0)
[2022-06-28] MEDS: LORazepam 2 MG/1 ML VIAL IV PRN ×3 (00:17→17:50)
[2022-06-28] MEDS: HEPARIN SODIUM/DEXTROSE 25,000 UNITS/500 ML BAG IV SCH ×2 (00:17→07:39)
[2022-06-28] MEDS: INSULIN ASPART PER UNIT CHARGE SC SCH ×5 (00:17→17:49)
[2022-06-28] MEDS: NITROGLYCERIN 2% OINTMENT 30GM TUBE EXT SCH ×3 (00:23→13:18)
[2022-06-28 06:42] LABS: Basophils # (auto) 0.05 K/uL (0-0.2); Basophils % (auto) 0.6 %; Eosinophils # (auto) 0.07 K/uL (0-0.50); Eosinophils % (auto) 0.8 %; Hematocrit (blood only) 33.3 % (37.0-47.0); Hemoglobin 11.4 g/dl (12.0-16.0); Immature Granulocytes # (auto) 0.02 K/uL (0.01-0.20); Immature Granulocytes % (auto) 0.2 %; Lymphocytes # (auto) 3.72 K/uL (1.2-3.4); Lymphocytes % (auto) 43.3 %; Mean Corpuscular Hemoglobin 30.7 pg (25.0-34.0); Mean Corpuscular Hgb Conc 34.2 g/dL (32.0-36.0); Mean Corpuscular Volume 89.8 fL (80.0-100.0); Mean Platelet Volume 11.4 fL (9.4-12.4); Monocytes # (auto) 0.47 K/uL (0.11-0.59); Monocytes % (auto) 5.5 %; Neutrophils # (auto) 4.27 K/uL (1.40-6.50); Neutrophils % (auto) 49.6 %; Platelet Count 219 K/uL (130-400); RDW Coefficient of Variation 12.9 % (11.5-14.5); RDW Standard Deviation 42.1 fL (36.4-46.3); Red Blood Count 3.71 M/uL (4.20-5.40)
[2022-06-28 06:58] LABS: BUN Creatinine Ratio 25.9 (10-20); Calcium 8.1 mg/dl (8.6-10.3); Creatinine Clr Calc Pharmacy 148.2 ml/min; Est GFR (Non-African American) 114.8 ml/min; Potassium 3.8 mmol/L (3.5-5.1)
[2022-06-28 07:00] LABS: Partial Thromboplastin Ratio 1.4; Partial Thromboplastin Time 39.9 Seconds (21.0-31.0)
[2022-06-28 08:30] LABS: Troponin I High Sensitivity 6295.5 pg/ml (0-14)
[2022-06-28] MEDS ORDERED: NICOTINE 21 MG/24 HR TDSY TD SCH (09:00)
[2022-06-28] MEDS ORDERED: LANTUS PER UNIT CHARGE SQ SCH ×3 (09:00→21:00)
[2022-06-28] MEDS ORDERED: ASPIRIN 81 MG ECTAB PO SCH (09:00)
--- NOTE | 2022-06-28 09:50 | Electrocardiogram Report ---
Test Reason : Blood Pressure : / mmHG Vent. Rate : 075 BPM Atrial Rate : 075 BPM P-R Int : 148 ms QRS Dur : 080 ms QT Int : 416 ms P-R-T Axes : 057 043 060 degrees QTc Int : 464 ms Normal sinus rhythm Normal ECG When compared with ECG of 27-JUN-2022 07:45, No significant change was found Confirmed by Eyad He ([id number] on 06/28/2022 9:50:21 AM Referred By: REFERRED SELF Confirmed By:Eyad He
[2022-06-28] MEDS: NICOTINE 21 MG/24 HR TDSY TD SCH (10:00)
[2022-06-28] MEDS: AMOXICILLIN/CLAVULANATE 875 MG TAB PO SCH ×2 (10:01→17:03)
[2022-06-28] MEDS: METOPROLOL TARTRATE 25 MG TAB PO SCH (10:03)
[2022-06-28] MEDS: ATORVASTATIN 40 MG TAB PO SCH (10:03)
[2022-06-28] MEDS: oxyCODONE HCL IR 5 MG TAB (IMMEDIATE RELEASE) PO PRN ×2 (10:12→15:58)
--- NOTE | 2022-06-28 10:36 | Cardiology Progress Note ---
Date of Service June 28, 2022 Assessment & Plan (1) NSTEMI (non-ST elevated myocardial infarction): (2) Hyperlipidemia: (3) CAD (coronary artery disease), [place] coronary artery: Plan 42-year-old female presenting with NSTEMI and taken to the cardiac catheterization lab urgently 06/27/2022. Culprit vessel appears to be septal slitter cut off operator. PCI attempted however, unsuccessful. Residual, severe late mid LAD stenosis noted. Patient with ongoing intermittent chest discomfort overnight. Troponin trending downward without ST elevation per ECG this morning. Further treatment options discussed clearing medical management with long-acting nitrates, beta-jerri, and possible calcium channel jerri versus repeat coronary angiography with intervention of the mid LAD. Patient is agreeable to repeat cardiac catheterization today. I will discuss further with interventional cardiology. Patient has a IV contrast allergy. Will treat with IV Solu-Medrol, Pepcid, and Benadryl prior to angiography. She will remain n.p.o. at this time. Admission and Anticipated Discharge Date Admission Date: June 27, 2022 Subjective 42-year-old female presented to the emergency department with chest pain radiating to her right arm. History of chronic chest discomfort as well. Due to ongoing pain and elevated troponin, she was taken urgently to the cardiac catheterization lab yesterday 06/27/2022. Proximal septal slitter cut off operator occluded which is likely the culprit vessel. PCI attempted, however, unsuccessful high- sensitivity troponin trended upward to 13,000. Trending downward to 6295 today, however, patient notes intermittent substernal chest discomfort today. Agitated since admission requiring Ativan and pain medication. Family present at bedside. Repeat ECG today demonstrating sinus rhythm with inverted T waves in V1 and V2. No ST elevation. Echocardiographic images reviewed demonstrating preserved LV systolic function with septal and inferior hypokinesis. Coronary angiography imaging reviewed demonstrating a severe mid LAD stenosis. Review of Systems Review of Systems: All systems reviewed & are unremarkable except as noted in Subjective Physical Exam Constitutional: + ill appearing Respiratory: normal respiratory effort Auscultation: lungs clear to auscultation bilaterally; no crackles, no rales, no rhonchi and no wheezes Cardiovascular: Rate/Rhythm: regular rate and regular rhythm Heart Sounds: normal S1 and normal S2; no murmur Vessels: radial pulses present; no JVD and no carotid bruit Extremities: + edema Gastrointestinal (Abdomen): Inspection/Auscultation: abdomen not distended and + abnormal bowel sounds Neurologic: CN's II-XI intact bilaterally and moves all extremities Psychiatric: Mood: + anxious mood Results & Data Vital Signs (Past 12 Hours) Vital Signs Temp Pulse Resp BP Pulse Ox O2 Del Method 06/28/22 08:00 36.7 C 84 17 109/70 98 Room Air 06/28/22 04:05 82 16 102/64 06/28/22 04:00 36.6 C 81 21 96 Room Air 06/27/22 23:00 36.8 C 80 20 106/69 93 Room Air Laboratory Results Cardiac Enzymes 06/27/22 06/28/22 Range/Units 16:48 05:34 Troponin I High Sens 48502.8 H* D 6295.5 H* D (0-14) pg/ml Coagulation 06/27/22 06/27/22 06/28/22 Range/Units 14:07 21:22 05:34 APTT 34.7 H 34.5 H 39.9 H (21.0-31.0) Seconds CBC 06/28/22 Range/Units 05:34 WBC 8.60 (4.8-10.8) K/ul RBC 3.71 L (4.20-5.40) M/uL Hgb 11.4 L (12.0-16.0) g/dl Hct 33.3 L (37.0-47.0) % Plt Count 219 (130-400) K/uL Neut # (Auto) 4.27 (1.40-6.50) K/uL Lymph # (Auto) 3.72 H (1.2-3.4) K/uL [place] # (Auto) 0.47 (0.11-0.59) K/uL Eos # (Auto) 0.07 (0-0.50) K/uL Baso # (Auto) 0.05 (0-0.2) K/uL Comprehensive Metabolic Panel 06/28/22 Range/Units 05:34 Sodium 135 L (136-145) mmol/L Potassium 3.8 (3.5-5.1) mmol/L Chloride 104 (98-107) mmol/L Carbon Dioxide 24 (21-32) mmol/L BUN 14 (6-23) mg/dl Creatinine 0.54 L (0.6-1.2) mg/dl Glucose 268 H (70-99(Fasting)) mg/dl Calcium 8.1 L (8.6-10.3) mg/dl Intake and Output 06/27/22 06/28/22 06/28/22 22:59 06:59 14:59 Intake Total 1385.133 / 1866.566 42.133 / 1866.566 222.933 / 222.933 Output Total 300 / 300 Balance 1385.133 / 1566.566 -257.867 / 1566.566 222.933 / 222.933 Intake: IV 935.133 / 1416.566 42.133 / 1416.566 222.933 / 222.933 Heparin Sodium/Dextrose 25,000 346.800 / 444.400 42.133 / 444.400 222.933 / 222.933 units In 500 ml @ 1,600 UNITS/ HR 32 mls/hr IV .[id number] [facility] Rx #:[id number] Sodium Chloride 0.9% 1000ML 1, 588.333 / 921.666 000 ml @ 100 mls/hr IV .Q10H [facility] Rx#:[id number] Oral 450 / 450 Output: Urine 300 / 300 Other: # Unmeasured Voids 2 Weight 87.6 kg Weight Measurement Method Standing Scale
[2022-06-28] MEDS: MoRPHine SULFATE 2 MG/ML CARP IV PRN (12:15)
[2022-06-28] MEDS ORDERED: diphenhydrAMINE 50 MG/ML VIAL IV STA (12:20)
[2022-06-28] MEDS ORDERED: FAMOTIDINE 20 MG in SYRINGE 3 ML IV STA (12:31)
[2022-06-28] MEDS ORDERED: methylPREDNISolone 125 MG in SYRINGE 0 ML IV STA (12:31)
--- NOTE | 2022-06-28 12:44 | Hospitalist Progress Note ---
Date of Service June 28, 2022 Assessment & Plan (1) NSTEMI (non-ST elevated myocardial infarction): Plan: History CAD status post stent placement in 2019 --Troponin increased from 132, now [address] elevation -- In light of patient's presentation, ongoing chest pain, heart alert called -- s/p cardiac cath: The acute lesion appears to be a possible large septal trunk. Unsuccessful PCI likely secondary to small caliber vessel. High risk for further attempts. There is also severe stenosis in the distal LAD which may be too small for PCI. It is not the culprit and was not addressed today. Patent prior stent Recommend guideline directed medical therapy for secondary prevention of coronary disease. Patient should remain on heparin drip for 48 hours. Hopefully this will allow dissolution of the apparent clot in the septal branch. -- Discussed with Dr. Sy Continue heparin drip, aspirin and metoprolol p.o. also started 06/28 Plan for repeat coronary angiography today to address residual severe mid LAD stenosis Continue heparin drip, metoprolol Positive urine drug screen --Patient admits to using marijuana -- Drug screen also positive for cocaine Benzos and opiates positive likely from morphine and Ativan received while admitted -- Patient exhibiting signs of agitation, occasional hallucinations, emotional lability Ativan IV as needed ordered 06/28 Patient appears more comfortable today Continue as needed Ativan Dental infection -- Patient reports having recent dental work on her left lower molar -- Reports she is still on a course of amoxicillin -- Augmentin 875 twice daily ordered DM 2 on oral medications, patient markedly hyperglycemic upon arrival at the ER --Glycemic pharmacist consulted hx GERD anxiety/mood disorder -- As needed Ativan ongoing tobacco abuse -- Nicotine patch DVT prophylaxis. IV heparin Full code plan of care discussed with patient and her significant other at the bedside in detail and at length all questions answered she is understanding, agreeable, comfortable with the plan of care Admission and Anticipated Discharge Date Admission Date: June 27, 2022 Subjective Follow-up for NSTEMI, etc. Seen resting in bed, not in distress, comfortable Patient's significant other and daughter at the bedside visiting Patient states that she feels tired, somewhat anxious, expressing desire to smoke Denies chest pain, shortness of breath, palpitations, dizziness, nausea Patient and her significant other are upset as apparently they were initially informed by the glass inspector that patient had no blockages in the heart after the cardiac catheterization, But I and the next glass inspector informed them that she did have heart blockages They are upset regarding the confusion of findings Explained findings of cardiac cath, apologized for any misunderstanding yesterday, reassured No other symptoms Review of Systems Review of Systems: all noted and negative except for above Physical Exam Physical Exam: General- oriented x 3, not in distress, speaks in sentences with no effort or accessory muscle use Eyes- anicteric Neck- no JVD Lungs- clear breath sounds bilaterally, no rales/wheezes Heart- normal rate, regular rhythm; no murmurs Abdomen- normal bowel sounds, nondistended, soft, nontender Extremities- no pretibial edema, no calf tenderness Neuro- alert, oriented x 3; no gross focal neurologic deficits Skin- warm & dry Results & Data Results & Data Vital Signs (Past 12 Hours) Vital Signs Temp Pulse Resp BP Pulse Ox O2 Del Method 06/28/22 12:12 36.5 C 70 18 95/58 L 98 Room Air 06/28/22 08:00 36.7 C 84 17 109/70 98 Room Air 06/28/22 04:05 82 16 102/64 06/28/22 04:00 36.6 C 81 21 96 Room Air
[2022-06-28] MEDS ORDERED: LANTUS PER UNIT CHARGE SC ONE (13:00)
[2022-06-28 14:10] LABS: Partial Thromboplastin Ratio 0.9; Partial Thromboplastin Time 26.5 Seconds (21.0-31.0)
[2022-06-28] MEDS ORDERED: MIDAZOLAM HCL 1 MG/ML 2ML VIAL ONE (14:19)
[2022-06-28] MEDS ORDERED: HEPARIN (PORCINE) 1000 UNIT/ML 10 ML (CATH LAB USE ONLY) ONE (14:19)
[2022-06-28] MEDS ORDERED: niCARdipine HCL INJ 2.5 MG/ML 10 ML AMP ONE (14:19)
[2022-06-28] MEDS ORDERED: fentaNYL citrate PF 100 MCG/2 ML VIAL ONE (14:20)
[2022-06-28] MEDS ORDERED: NITROGLYCERIN/D5W 100MCG/ML 20ML SYR ONE (14:26)
--- NOTE | 2022-06-28 14:26 | Pharmacy Report ---
Pharmacy Glycemic Short Note 2 - Date of Service June 28, 2022 - Glycemic Short BSG Results (Last 24 hours): 06/27/22 06/27/22 06/27/22 17:00 17:00 20:33 Glucose POC Glucose 337 H* 305 H* 247 H 06/28/22 06/28/22 06/28/22 00:01 04:04 05:34 Glucose 268 H POC Glucose 259 H 289 H 06/28/22 06/28/22 07:52 11:36 Glucose POC Glucose 222 H 225 H OUTPATIENT ANTIDIABETIC REGIMEN: * Unknown * HbA1C = 9.6% (06/27/22) ASSESSMENT: 06/28/22 * BSGs yesterday were 278-275-337/305-247 and overnight were 259-289 mg/dL. * Patient received 56 units of insulin (25 units of basal and 31 units of bolus). Overnight, patient received 14 units of insulin. * Patient's BSGs today are 289 and 222 mg/dL which are slightly improved. * Patient to go for another cardiac procedure today and received an additional 125 mg IV of solu-medrol. Patient may have diet ordered after this. * For Lantus, ordered an additional 25 units with Solu-Medrol and evening scale on for tonight based upon BSGs. * Tightened Novolog. Continue q4 checks for now until hyperglycemia resolved. BACKGROUND * Ms Fernandez is a 42 y/o F with a PMH of T2DM on oral medications who presents with an NSTEMI. * Patient's BSG on admission @ 0400 was 429 mg/dL and patient received Lantus 25 units + Novolog 8 units for this. * BSG at noon was 279 mg/dL. * Since the Lantus dose this AM was almost full weight-based stress of 2 + patient is NPO, will not give additional Lantus today. Additional dosing tomorrow based upon response + diet status. * Will instead utilize tight CF to lower BSG to goal range. Will use weight- based stress of 3 CF with q4 checks to ensure adequate coverage. PLAN FOR INPATIENT GLYCEMIC CONTROL: * Hold outpatient oral diabetes medications * Basal insulin * Lantus 25 units SQ x 1 with 15-25 units SQ HS x 1 ordered * Bolus insulin * NovoLog per scale ACHS or Q6hrs while NPO * Goal Range: Low 110 mg/dL - High 140 mg/dL * Correction Factor: 15 mg/dL/unit * Nutritional / Prandial insulin per carb ratio of 1 unit per 6 grams CHO consumed
[2022-06-28] MEDS ORDERED: CLOPIDOGREL BISULFATE 300 MG TAB ONE (15:03)
--- NOTE | 2022-06-28 15:27 | Pre Anesthesia Assessment ---
Date of Service June 28, 2022 Pre Sedation Assessment Vital Signs Temp Pulse Resp BP Pulse Ox O2 Del Method 06/28/22 15:20 64 18 116/67 97 Room Air 06/28/22 14:04 73 18 101/71 98 Room Air 06/28/22 12:12 97.7 F 70 18 95/58 L 98 Room Air 06/28/22 08:00 98.1 F 84 17 109/70 98 Room Air 06/28/22 04:05 82 16 102/64 06/28/22 04:00 97.9 F 81 21 96 Room Air 06/27/22 20:15 Room Air 06/27/22 23:00 98.2 F 80 20 106/69 93 Room Air 06/27/22 19:00 98.6 F 82 24 108/68 97 Room Air 06/27/22 15:38 98.2 F 96 H 18 122/76 95 Room Air Cardiovascular RRR, no murmur, no edema Respiratory normal respiratory effort, lungs clear to auscultation Pre-Sedation Airway Assessment Smoking Status: Current every day smoker Hx Sleep Apnea: No Hx Difficult Intubation: No Short, Thick Neck: No Thyromental Distance: > or= 3.5 Finger Breadths Oral Cavity: + WNL Mallampati Class: II ASA: ASA3 NPO Status Date of Last Intake of Fluids: 06/28/22 Time of Last Intake of Fluids: 07:00 Last Oral Intake of Fluids Comment: sips with meds Date of Last Intake of Solid Food: 06/27/22 Time of Last Intake of Solid Foods: 21:00 Procedure Planning Contraindications for Sedation: none Current Medications Reviewed: Yes Notes The planned sedation has been discussed with the patient. Informed Consent was obtained. I have identified the patient, determined the appropriateness of sedation and have assessed the patient immediately prior to the procedure. All medicine(s) and interventions are by my order.
--- NOTE | 2022-06-28 15:27 | Post Anesthesia Assessment ---
Date of Service June 28, 2022 Post Sedation Assessment Vital Signs Temp Pulse Resp BP Pulse Ox O2 Del Method 06/28/22 15:20 64 18 116/67 97 Room Air 06/28/22 14:04 73 18 101/71 98 Room Air 06/28/22 12:12 97.7 F 70 18 95/58 L 98 Room Air 06/28/22 08:00 98.1 F 84 17 109/70 98 Room Air 06/28/22 04:05 82 16 102/64 06/28/22 04:00 97.9 F 81 21 96 Room Air 06/27/22 20:15 Room Air 06/27/22 23:00 98.2 F 80 20 106/69 93 Room Air 06/27/22 19:00 98.6 F 82 24 108/68 97 Room Air 06/27/22 15:38 98.2 F 96 H 18 122/76 95 Room Air Recovery Score Activity: Moves 4 extremities Respiration: Deep Breath/Cough Circulation: +/-20% PreAnes Value Consciousness: Fully Awake Oxygen Saturation: > 92% On Room Air Post Anesthesia Score: 10 Discharge Sedation Level of Care: Fast Track Phase II Post Sedation Plan On clinical assessment, the patient appears to have tolerated the sedation without complications. Patient is recovering as anticipated. Patient will continue to be monitored by nursing and may be discharged when sedation discharge criteria are met per below protocol. Upon Completions of procedure up to 15 minutes continue every 5 minute vital signs and the P.A.R. score; then discharge to a Phase I or Fast Track to Phase II per the following guidelines: * Discharge Patient to appropriate Phase II area if PAR is 8 or greater or return to pre- procedure baseline. The post - procedure orders will be as directed. * If PAR score is less than 8 or not return to pre-procedure baseline then patient will follow Phase I monitoring till PAR is reached for Phase II. The Phase I may be done in procedure room or may call to secure a Phase I area. * If naloxone or flumazenil are used for reversal, hold in Phase I for cont inued monitoring from when last reversal dose was given for a minimum of 60 minutes or longer pending the nurse and/or physician discretion of patient condition before discharge to Phase II. Please call the Sedation Physician to re-evaluate and complete post-note for discharge to Phase II area. Do NOT discharge from procedure sedation or Phase 1 until post- sedation evaluation note is complete by procedure /sedation MD Sedation Discharge Instructions to be given to the patient at discharge to home.
--- NOTE | 2022-06-28 18:01 | Cardiac Catheterization ---
[facility] Data: Divinity Teacher Cardiac Status Clinical evaluation leading to the procedure CAD Presenation: Non STEMI Anginal Classification: CCS IV Diagnostic Physicians Name: Олег Damon MD Closure Device Recommendations: PCI without planned CABG Cardiac Cath Procedure Full Procedure Date June 28, 2022 Pre-Procedure Diagnosis Pre-Procedure Diagnosis: Non STEMI AUC Score AUC Score: 07 Post-Procedure Diagnosis Post-Procedure Diagnosis: Severe CAD and Successful PCI Procedure(s) Performed Procedure(s) Performed: Coronary Angiography, Left Heart Cath and Drug Eluting Stent Oyster Preparer Олег Damon MD Television And Radio Repairer(s) Temo Estimated Blood Loss Estimated Blood Loss: 15 ml Medication(s) Medication(s): Clopidogrel, Fentanyl, Heparin, Lidocaine 1%, Nicardipine, Nitroglycerin and Versed Summary of Findings Indication: NSTEMI. Underwent cardiac catheterization yesterday showing acutely occluded first septal, medically managed. Here today for PCI of severe latemid LAD stenosis at takeoff of D2. Access: 6 Fr right radial artery Catheters: EBU 3.5 guide, pigtail Findings: LM -normal caliber, no significant disease LAD -medium caliber vessel, 40-50% mid stenosis after takeoff of first septal, focal 80 to 90% stenosis just after takeoff of D3. Remainder of LAD small caliber vessel and extends to apex. First septal with 98% stenosis and CHERYL II- III flow Circumflex -dominant, medium caliber vessel, late mid vessel with 50 to 60% s tenosis just after OM2, distal vessel with 40% disease prior to left PDA. OM1 with widely patent proximal stent. RCA -not visualized today. Previously shown to be nondominant with mild diffuse disease. LVEDP -21 -- PCI -- Antithrombotic therapy: Heparin, clopidogrel Procedure: Left main cannulated with EBU 3.5 guide Pre-procedure flow CHERYL 3 Saloon Keeper 50 wire passed across lesion into distal vessel Latemid LAD lesion predilated with 2.0 compliant balloon Whisper wire placed into D2 Dilated lesion stented with 2.25 x 15 mm [place] drug-eluting stent Stent post-dilated with 2.5 noncompliant balloon IC vasodilators administered for spasm Post procedure CHERYL 3 flow, stent well expanded with minimal residual stenosis and no apparent cardiac complications. CHERYL-3 flow in jailed D2 with moderate o stial stenosis. Arterial Closure: TR band Summary: 1. Successful PCI of latemid LAD with single drug-eluting stent (2.25 x 15 mm [place]; postdilated with 2.5 NC). 2. First septal with severe proximal stenosis but now CHERYL II-III flow. 3. Elevated left-sided filling pressure (LVEDP 21). Recommendations: To PCU for continued monitoring Loaded with clopidogrel 600 mg in Divinity Teacher Continue dual-antiplatelet therapy for at least 1 year Continue statin, and ASCVD risk factor modification Consult cardiac Rehab Hemodynamics Rest Ao:: 101/60/78 Final Ao: 114/67/82 LV: 115/21 Recommendations Recommendations: PCI without planned CABG Specimens Specimens: None Radiation Exposure (mGy) 1655 Contrast (mls) 95 Anesthesia Moderate 8120-2920 fentanyl and Versed Procedural Complication(s) None Disposition PCU I attest to the content of the Intraoperative Record and any orders documented therein. Any exceptions are noted below. [facility] Card Cath Procedure Codes Cardiac Catheterization Procedure 1: Cardiovascular Cath Procedures: 20520 Left Heart Cath (+/-LV) Moderate Sedation Procedure 1: Sedation/Anesthesia: 18637 Mod Sedation by the same physician;Init15 Min Child Age 5 & Up Procedure 2: Sedation/Anesthesia: 33786 Mod Sedation by the same physician; Ea [id number] Minutes Stenting Procedure 1: Cardiovascular Stent Procedures: 42723 Perc transcatheter placement of intracoronary stent(s), with ang PG Care Time/CCT Total # of Minutes Spent Total Time Spent with Patient: Total time spent is greater than 50% in coordination of care (as documented) at patient's floor/unit and/or counseling patient:
[2022-06-28] MEDS ORDERED: LORazepam 2 MG/1 ML VIAL IV STA (18:38)
--- NOTE | 2022-06-29 00:02 | Communication Note ---
Date of Service: June 28, 2022 Late entry 7:15 PM Made aware by RN of patient intent to leave hospital AGAINST MEDICAL ADVICE despite counseling. Similar concerns last night. Patient contemplated leaving hospital AGAINST MEDICAL ADVICE last night because she was not given permission to go out to smoke. AMA paper accomplished by undersigned last night and left with patient RN for patient to sign in case patient decided to leave. Patient signed AMA paper as per RN. Will relay incident to morning provider (Dr. Kramer) for further disposition. Dr. Kramer to accomplish discharge summary.
[2022-06-29] MEDS ORDERED: CLOPIDOGREL BISULFATE 75 MG TAB PO SCH (09:00)
--- NOTE | 2022-06-29 11:34 | Discharge Summary ---
Discharge Summary Date of Service June 29, 2022 Notes For Next Care Provider Medication Changes From Visit New medications: Toprol XL 50 mg p.o. daily Aspirin 81 mg p.o. daily Plavix 75 mg p.o. daily Lipitor 80 mg p.o. daily Admission HPI Per Admitting Provider History obtained from patient, family, and records. Medical history significant for CAD status post stent, DM 2 on oral medications, GERD, anxiety/mood disorder, ongoing tobacco abuse. Patient recently relocated to [place] from [place], [place] with her family. Previous PCP from [facility] affiliated with the [facility]. Patient had a stent put in for CAD in [facility] around 2019. Intermittent chest pain occurring every other day despite stent placement. Last saw her digital editor a year after stent was placed. Chest pain attributed to anxiety. Last night, patient had midsternal pain radiating to her right shoulder similar to heart attack in the past somewhat worse. Chest pain going to her neck and head. Accompanying shortness of breath and diaphoresis symptoms. Subsequent emesis without abdominal pain. Symptoms improved with aspirin and nitroglycerin administration prior to ER arrival. IV heparin initiated at the ER. Medical History as above Surgical History : Appendectomy, cholecystectomy, sections, tonsillectomy/adenectomy Family History : Heart disease Personal/Social history : 1 pack daily, no EtOH intake, homemaker Admission Exam Per Admitting Provider GENERAL: uncomfortable, anxious, obese, looks older than stated age, no respiratory distress SKIN: Normal color, warm HEENT: [place] palpebral conjunctivae, no ptosis, dry buccal mucosa NECK : Supple, no tenderness CHEST : CTA, no tenderness HEART : RRR, no obvious murmurs ABDOMEN: Some distention, nontender EXTREMITIES : No LE swelling/tenderness, no other conspicuous deformities noted NEUROLOGIC : Coherent, no facial asymmetry, no other gross focality Principal Dx & Hospital Course #1 = Principal Diagnosis (1) NSTEMI (non-ST elevated myocardial infarction): History CAD status post stent placement in 2019 Status post cardiac cath, status post stent placement in late-mid LAD --Troponin increased from 132, now [address] elevation -- In light of patient's presentation, ongoing chest pain, heart alert called -- s/p cardiac cath 06/27/2022: The acute lesion appears to be a possible large septal trunk. Unsuccessful PCI likely secondary to small caliber vessel. High risk for further attempts. There is also severe stenosis in the distal LAD which may be too small for PCI. It is not the culprit and was not addressed today. Patent prior stent Recommend guideline directed medical therapy for secondary prevention of coronary disease. Patient should remain on heparin drip for 48 hours. Hopefully this will allow dissolution of the apparent clot in the septal branch. Continued heparin drip, aspirin and metoprolol p.o. also started 06/28 repeat coronary angiography: Summary: 1. Successful PCI of latemid LAD with single drug-eluting stent (2.25 x 15 mm [place]; postdilated with 2.5 NC). 2. First septal with severe proximal stenosis but now CHERYL II-III flow. 3. Elevated left-sided filling pressure (LVEDP 21). Unfortunately, patient decided to sign out AGAINST MEDICAL ADVICE in the evening I personally called the patient over the phone around 11 AM, June 29, 2022 Patient states she feels fine overall Explained to patient regarding importance of adherence to medication regimen and close follow-up with PCP and digital editor in light of her medical conditions Explained to patient her new medications including aspirin 81 mg daily, Plavix and 5 mg p.o. daily, Lipitor 80 mg daily and Toprol-XL 50 mg p.o. daily Explained that she needs to take above medications to prevent stent occlusions and complications Patient verbalized understanding agreement She is to follow-up with PCP this coming Tuesday, and cardiology clinic also notified to set up a follow-up appoint with the patient Positive urine drug screen --Patient admits to using marijuana -- Drug screen also positive for cocaine Benzos and opiates positive likely from morphine and Ativan received while admitted -- Patient exhibiting signs of agitation, occasional hallucinations, emotional lability Ativan IV as needed ordered 06/29 Patient strongly advised against smoking, alcohol use, substance use She verbalized understanding and agreement Dental infection, left lower molar -- Patient reports having recent dental work on her left lower molar -- Reports she is still on a course of amoxicillin --No signs of cellulitis on physical exam, but patient reports persistent left lower molar pain -- Augmentin 875 twice daily x7 days, prescription sent to her pharmacy -- Please follow-up closely, refer to local dentist for further evaluation and management DM 2 on oral medications, patient markedly hyperglycemic upon arrival at the ER -- A1c 9.6 Glycemic pharmacist consulted --Continue glipizide for now Follow-up with PCP this Tuesday hx GERD anxiety/mood disorder -- As needed Ativan ongoing tobacco abuse -- Nicotine patch provided -- Patient counseled -- She was requesting a prescription for Ativan Patient advised to follow-up with her PCP this coming Tuesday, also advised to return to the ER if with worsening anxiety, depression for medical evaluation and treatment plan of care discussed with patient in detail and at length over the phone (speaker phone) With our nurse navigator Robin Pace also present during the conversation, patient aware all questions answered She is understanding, agreeable, comfortable with the plan of care Discharge Exam Not performed as patient signed out AMA Updated Medication List Medication Instructions Recorded Confirmed Type bupropion HCl 300 mg 24 hr tablet, 300 mg PO QAM 06/27/22 06/27/22 History extended release glimepiride 2 mg tablet 2 mg PO BID 06/27/22 06/27/22 History hydroxyzine pamoate 50 mg capsule 50 mg PO DAILY PRN Anxiety 06/27/22 06/27/22 History lamotrigine 25 mg tablet See Rx Instructions .Route .COMPLEX 06/27/22 06/27/22 History metoprolol succinate 25 mg 12.5 mg PO DAILY 06/27/22 06/27/22 History tablet,extended release 24 hr paroxetine HCl 30 mg tablet 30 mg PO DAILY 06/27/22 06/27/22 History amoxicillin 875 mg-potassium 1 tab PO BID 7 days #14 tabs 06/29/22 Rx clavulanate 125 mg tablet aspirin 81 mg tablet,delayed 81 mg PO DAILY #30 tabs 06/29/22 Rx release (Ecotrin Low Strength) atorvastatin 80 mg tablet 80 mg PO HS 30 days #30 tabs 06/29/22 Rx clopidogrel 75 mg tablet (Plavix) 75 mg PO DAILY 30 days #30 tabs 06/29/22 Rx metoprolol succinate 50 mg 50 mg PO DAILY #30 tabs 06/29/22 Rx tablet,extended release 24 hr (Toprol XL) Hospital Stay Data Consultations 06/27/22 04:26 ED Decision to Admit Stat 06/27/22 07:35 Consult Cardiology Routine Procedures Performed Operation Date: 06/28/22 14:00 Actual Procedures p Cineradiography w/Routine Exam - Kraig Damon MD p Cath, Left with Cors and Vent - Evan Zelaya DO p Drug Eluting Stent SGl Vessel - Kraig Damon MD Diagnostic Imagining Performed 06/27/22 06:00 CT head/brain wo con Stat COMPARISON STUDY: No previous studies for comparison. CT DOSE: 614.27 mGy.cm TECHNIQUE: Helical axial images of the head were obtained without IV contrast. Automated exposure control was utilized for the study. A dose lowering technique was utilized adhering to the principles of ALARA. FINDINGS: No acute intracranial hemorrhage, midline shift or mass effect is present. The ventricular system is unremarkable. The basal cisterns are patent. No extra-axial collections are present. There are no findings to suggest acute dural sinus thrombosis or acute territorial infarct. No significant calvarial abnormalities are present. Visualized portions of the sinuses and mastoid air cells are clear. IMPRESSION: No acute intracranial findings. ACT 112: Negative or not required by law. Electronically signed by: Simon Castano M.D. 06/27/2022 6:52 AM 06/27/22 09:09 CL Cath Imgs for PACS use only Routine 06/28/22 14:19 CL Cath Imgs for PACS use only Stat Total Time Total Time Spent Total Time Spent (In Minutes): > 30 minutes
--- NOTE | 2022-06-29 22:41 | Electrocardiogram Report ---
Test Reason : Blood Pressure : / mmHG Vent. Rate : 077 BPM Atrial Rate : 077 BPM P-R Int : 158 ms QRS Dur : 070 ms QT Int : 428 ms P-R-T Axes : 048 052 062 degrees QTc Int : 484 ms Normal sinus rhythm Possible Septal infarct , age undetermined Prolonged QT Abnormal ECG When compared with ECG of 27-JUN-2022 08:59, QT has lengthened Confirmed by Eyad He ([id number]) on 06/29/2022 10:41:25 PM Referred By: REFERRED SELF Confirmed By:Eyad He
--- NOTE | 2022-06-30 05:20 | Electrocardiogram Report ---
Test Reason : Blood Pressure : / mmHG Vent. Rate : 076 BPM Atrial Rate : 076 BPM P-R Int : 150 ms QRS Dur : 076 ms QT Int : 420 ms P-R-T Axes : 049 046 059 degrees QTc Int : 472 ms Normal sinus rhythm Normal ECG When compared with ECG of 28-JUN-2022 04:17, Criteria for Septal infarct are no longer Present Confirmed by Eyad He ([id number]) on 06/30/2022 5:20:18 AM Referred By: REFERRED SELF Confirmed By:Eyad He
[2022-06-30 12:22] LABS: 7-Aminoclonaz, Confirm NEGATIVE ng/mL (<25); Cocaine, Urine 806 ng/mL (<100); Codeine Urine NEGATIVE ng/mL (<50); Hydro-Alp Ur, GC/MS NEGATIVE ng/mL (<25); Hydrocodone Urine NEGATIVE ng/mL (<50); Hydromor Urine NEGATIVE ng/mL (<50); Hydroxyethylflurazepam, Conf NEGATIVE ng/mL (<50); Hydroxymidazolam Ur, GC/MS 559 ng/mL (<50); Hydroxytriazolam NEGATIVE ng/mL (<50); Lorazepam, Ur GC/MS 842 ng/mL (<50); Marijuana Quant, GCMS Urine 3575 ng/mL (<5); Morphine Urine 1520 ng/mL (<50); Nordiazepam, Confirm NEGATIVE ng/mL (<50); Norhydrocodone Conf Ur NEGATIVE ng/mL (<50); Noroxycodone Urine NEGATIVE ng/mL (<50); Oxazepam Ur, GC/MS NEGATIVE ng/mL (<50); Oxycodone Urine NEGATIVE ng/mL (<50); Oxymorph Urine NEGATIVE ng/mL (<50); Temazepam, Confirm NEGATIVE ng/mL (<50)
== END 2022-06-28 19:29 | disposition left against medical advice (07) | DRG 247 ==
LOC: ED 02:18 → 4W 06:01
PROC: CLB.CCO (2022-06-27 09:30)